=== PATIENT | female | born 1985 | race Caucasian/White ===

== ENCOUNTER 2018-04-11 11:02 | Emergency (ER) | payer OTHER ==
[2018-04-11] MEDS ORDERED: NA CHLORIDE 0.9% 1,000 ML ONE (11:27)
[2018-04-11 12:02] LABS: Protime INR 1.03
[2018-04-11 12:07] LABS: Absolute Lymphocytes (CBC) 1.7 K/uL (0.7-4.9); Absolute Monocytes 0.6 K/uL (0.1-1.3); Absolute Neutrophil 6.3 K/uL (1.8-8.0); Basophils % 1.1 % (0-1.3); Eosinophils % 3.8 % (0-4.4); Hematocrit 46.7 % (36.0-45.0); Lymphocytes % 18.3 % (15.3-44.8); MCH 31.6 pg (27.0-35.0); MPV 10.4 fL (7.6-11.3); Monocytes % 7.2 % (3.3-12.3); RBC Red Blood Cell Count 5.07 M/uL (3.86-4.86)
[2018-04-11 12:09] LABS: ALT/SGPT 29 U/L (12-78); AST/SGOT 24 U/L (15-37); Albumin 4.4 g/dL (3.4-5.0); Alkaline Phosphatase 89 U/L (45-117); BUN Blood Urea Nitrogen 13 mg/dL (7-18); Bicarbonate 29 mmol/L (21-32); Bilirubin Direct 0.1 mg/dL (0-0.2); Bilirubin Total 0.5 mg/dL (0.2-1.0); Glucose Level 99 mg/dL (74-106); Magnesium 2.3 mg/dL (1.8-2.4); NT PRO-BNP 60 pg/mL (<125); Potassium 3.2 mmol/L (3.5-5.1); Protein, Total 8.2 g/dL (6.4-8.2); Sodium Level 144 mmol/L (136-145); Troponin (Emerg Dept Use Only) < 0.02 ng/mL (0.0-0.045)
[2018-04-11] MEDS ORDERED: METOPROLOL XL 50 MG TAB PO ONE (12:12)
[2018-04-11 12:16] LABS: Barbiturates NEGATIVE (NEGATIVE); Benzodiazepines NEGATIVE (NEGATIVE); Cocaine NEGATIVE (NEGATIVE); METHAMPHETAM NEGATIVE (NEGATIVE); Methadone NEGATIVE (NEGATIVE); Opiates NEGATIVE (NEGATIVE); Phencyclidine NEGATIVE (NEGATIVE); THC Cannibis POSITIVE (NEGATIVE)
--- NOTE | 2018-04-11 12:16 | RAD REPORT ---
EXAM DESCRIPTION: RAD - Chest Single View - 04/11/2018 12:04 pm CLINICAL HISTORY: Chest pain COMPARISON: March 2017 TECHNIQUE: AP portable chest image was obtained 1139 hours . FINDINGS: Lungs are clear. Heart and vasculature are normal. No measurable pleural effusion and no p neumothorax. No acute bony abnormality seen. No acute aortic findings suspected. IMPRESSION: No acute cardiopulmonary process. No suspicious change from comparison.
--- NOTE | 2018-04-11 12:39 | ER ---
Nurse's Notes [facility] Name: Amber Giles Age: 32 yrs Sex: Female : 1985 Arrival Date: 04/11/2018 Time: 11:03 Bed 8 Private MD: Diagnosis: Palpitations;Hypokalemia Presentation: 04/11 11:06 Presenting complaint: Patient states: I have been having chest pain and a crazy feeling la1 in my chest and it feels like it goes to my back. Transition of care: patient was not received from another setting of care. Onset of symptoms was April 11, 2018. Risk Assessment: Do you want to hurt yourself or someone else? Patient reports no desire to harm self or others. Initial Sepsis Screen: Does the patient meet any 2 criteria? No. Patient's initial sepsis screen is negative. Does the patient have a suspected source of infection? No. Patient's initial sepsis screen is negative. Care prior to arrival: None. 11:06 Method Of Arrival: Ambulatory la1 11:06 Acuity: JOSUÉ 3 la1 DIRECTOR CLINICAL PHARMACOLOGY: 13:00 LMP 04/10/2018 jl7 Historical: - Allergies: 11:07 Macrobid; la1 - PMHx: 11:07 allergies; LEAKING HEART VALVE WITH REGUR.; la1 - Immunization history:: Adult Immunizations up to date. - Social history:: Smoking status: Patient/guardian denies using tobacco. - Ebola Screening: : No symptoms or risks identified at this time. - Family history:: not pertinent. Screenin:42 Abuse screen: Denies threats or abuse. Denies injuries from another. Nutritional jl7 screening: No deficits noted. Tuberculosis screening: No symptoms or risk factors identified. Fall Risk IV access (20 points). Total Musa Fall Scale indicates No Risk (0-24 pts). Assessment: 11:20 General: Appears uncomfortable, ill, Behavior is cooperative, appropriate for age. jl7 Pain: Complains of pain in chest Pain does not radiate. Pain currently is 7 out of 10 on a pain scale. Quality of pain is described as pressure, Pain began Is continuous. Neuro: Level of Consciousness is awake, alert, obeys commands, Oriented to person, place, time, situation. Cardiovascular: Heart tones S1 S2 present Patient's skin is warm and dry. Respiratory: Airway is patent Respiratory effort is even, unlabored, Respiratory pattern is regular, symmetrical, Breath sounds are clear bilaterally. GI: No signs and/or symptoms were reported involving the gastrointestinal system. : No signs and/or symptoms were reported regarding the genitourinary system. EENT: No signs and/or symptoms were reported regarding the EENT system. Derm: Skin is dry, Skin is pale, Skin temperature is warm. Musculoskeletal: No signs and/or symptoms reported regarding the musculoskeletal system. Vital Signs: 11:07 BP 126 / 67; Pulse 110; Resp 16; Temp 97.6; Pulse Ox 98% on R/A; Weight 49.9 kg; Height la1 5 ft. 1 in. (154.94 cm); 11:42 BP 108 / 76; Pulse 73; Resp 23 S; Pulse Ox 99% on R/A; Pain 7/10; jl7 12:00 BP 118 / 73; Pulse 66; Resp 16 S; Pulse Ox 100% on R/A; jl7 13:01 BP 109 / 64; Pulse 74; Resp 16 S; Pulse Ox 100% on R/A; jl7 11:07 Body Mass Index 20.79 (49.90 kg, 154.94 cm) la1 ED Course: 11:03 Patient arrived in ED. tw3 11:07 Triage completed. la1 11:08 Arm band placed on left wrist. la1 11:12 Alexis Winchester MD is Attending Physician. katharine 11:15 Sukhjinder Bright, RN is Primary Nurse. jl7 11:20 EKG done, by ED staff, reviewed by Alexis Winchester MD. jb1 11:30 Initial lab(s) drawn, by mi, sent to lab. Urine collected: clean catch specimen, jb1 cloudy, neal colored. Inserted saline lock: 20 gauge in right antecubital area, using aseptic technique. Blood collected. 11:42 Patient has correct armband on for positive identification. Placed in gown. Bed in low jl7 position. Call light in reach. Side rails up X 1. elevator builder on. Pulse ox on. NIBP on. Warm blanket given. 11:42 Patient maintains SpO2 saturation greater than 95% on room air. jl7 12:04 XRAY Chest (1 view) In Process Unspecified. EDMS 13:07 No provider procedures requiring assistance completed. IV discontinued, intact, jl7 bleeding controlled, No redness/swelling at site. Pressure dressing applied. Administered Medications: 11:38 Drug: NS 0.9% 1000 ml Route: IV; Rate: 1 bolus; Site: right antecubital; jl7 12:30 Follow up: Response: No adverse reaction; IV Status: Completed infusion jl7 12:06 Drug: ToPROL XL 12.5 mg Route: PO; jl7 13:02 Follow up: Response: No adverse reaction jl7 12:57 Drug: Potassium Effervescent Tablet 25 mEq Route: PO; jl7 13:01 Follow up: Response: Medication administered at discharge. jl7 Outcome: 12:39 Discharge ordered by . katharine 13:07 Discharged to home ambulatory. jl7 13:07 Condition: stable 13:07 Discharge instructions given to patient, family, Instructed on discharge instructions, follow up and referral plans. medication usage, Demonstrated understanding of instructions, follow-up care, medications, Prescriptions given X 1. 13:08 Patient left the ED. jl7 Signatures: Dispatcher [employer] EDMS Kaiden Stokes jb1 Alexis Winchester MD MD cha Attema, Lee, RN RN la1 Sukhjinder Bright RN RN jl7 Colette Saleh tw3 Corrections: (The following items were deleted from the chart) 11:42 11:20 BP 108 / 76; Pulse 73bpm; Resp 23bpm; Spontaneous; Pulse Ox 99% RA; Pain 01/06; [id number]
--- NOTE | 2018-04-11 12:39 | EDPHYS ---
Physician Documentation [facility] Name: Amber Giles Age: 32 yrs Sex: Female : 1985 Arrival Date: 04/11/2018 Time: 11:03 Bed 8 Private MD: ED Physician Alexis Winchester HPI: 04/11 11:57 This 32 yrs old Female presents to ER via Ambulatory with complaints of Chest katharine Pain, Breathing Difficulty. 11:57 The patient or guardian reports chest pain that is located primarily in the substernal katharine area. The pain does not radiate. Associated signs and symptoms: The patient has no apparent associated signs or symptoms. The chest pain is described as a pressure. Modifying factors: The symptoms are alleviated by nothing. the symptoms are aggravated by nothing. Severity of pain: At its worst the pain was mild in the emergency department the pain is unchanged. The patient has experienced similar episodes in the past, multiple times. PUBLIC RELATIONS: 13:00 LMP 04/10/2018 jl7 Historical: - Allergies: 11:07 Macrobid; la1 - PMHx: 11:07 allergies; LEAKING HEART VALVE WITH REGUR.; la1 - Immunization history:: Adult Immunizations up to date. - Social history:: Smoking status: Patient/guardian denies using tobacco. - Ebola Screening: : No symptoms or risks identified at this time. - Family history:: not pertinent. ROS: 11:57 Constitutional: Negative for fever, chills, and weight loss, Eyes: Negative for injury, katharine pain, redness, and discharge, ENT: Negative for injury, pain, and discharge, Neck: Negative for injury, pain, and swelling, Respiratory: Negative for shortness of breath, cough, wheezing, and pleuritic chest pain, Abdomen/GI: Negative for abdominal pain, nausea, vomiting, diarrhea, and constipation, Back: Negative for injury and pain, : Negative for injury, bleeding, discharge, and swelling, MS/Extremity: Negative for injury and deformity, Skin: Negative for injury, rash, and discoloration, Neuro: Negative for headache, weakness, numbness, tingling, and seizure, Psych: Negative for depression, anxiety, suicide ideation, homicidal ideation, and hallucinations, Allergy/Immunology: Negative for hives, rash, and allergies, Endocrine: Negative for neck swelling, polydipsia, polyuria, polyphagia, and marked weight changes, Hematologic/Lymphatic: Negative for swollen nodes, abnormal bleeding, and unusual bruising. 11:57 Cardiovascular: Positive for palpitations. Exam: 11:57 Constitutional: This is a well developed, well nourished patient who is awake, alert, katharine and in no acute distress. Head/Face: Normocephalic, atraumatic. Eyes: Pupils equal round and reactive to light, extra-ocular motions intact. Lids and lashes normal. Conjunctiva and sclera are non-icteric and not injected. Cornea within normal limits. Periorbital areas with no swelling, redness, or edema. ENT: Nares patent. No nasal discharge, no septal abnormalities noted. Tympanic membranes are normal and external auditory canals are clear. Oropharynx with no redness, swelling, or masses, exudates, or evidence of obstruction, uvula midline. Mucous membranes moist. Neck: Trachea midline, no thyromegaly or masses palpated, and no cervical lymphadenopathy. Supple, full range of motion without nuchal rigidity, or vertebral point tenderness. No Meningismus. Chest/axilla: Normal chest wall appearance and motion. Nontender with no deformity. No lesions are appreciated. Cardiovascular: Regular rate and rhythm with a normal S1 and S2. No gallops, murmurs, or rubs. Normal PMI, no JVD. No pulse deficits. Respiratory: Lungs have equal breath sounds bilaterally, clear to auscultation and percussion. No rales, rhonchi or wheezes noted. No increased work of breathing, no retractions or nasal flaring. Abdomen/GI: Soft, non-tender, with normal bowel sounds. No distension or tympany. No guarding or rebound. No evidence of tenderness throughout. Back: No spinal tenderness. No costovertebral tenderness. Full range of motion. Skin: Warm, dry with normal turgor. Normal color with no rashes, no lesions, and no evidence of cellulitis. MS/ Extremity: Pulses equal, no cyanosis. Neurovascular intact. Full, normal range of motion. Neuro: Awake and alert, GCS 15, oriented to person, place, time, and situation. Cranial nerves II-XII grossly intact. Motor strength 5/5 in all extremities. Sensory grossly intact. Cerebellar exam normal. Normal gait. Psych: Awake, alert, with orientation to person, place and time. Behavior, mood, and affect are within normal limits. 11:59 Musculoskeletal/extremity: DVT Exam: No signs of deep vein thrombosis. no pain, no katharine swelling, no tenderness, negative Homans' sign noted on exam, no appreciated bluish discoloration, no erythema, no increased warmth. Vital Signs: 11:07 BP 126 / 67; Pulse 110; Resp 16; Temp 97.6; Pulse Ox 98% on R/A; Weight 49.9 kg; Height la1 5 ft. 1 in. (154.94 cm); 11:42 BP 108 / 76; Pulse 73; Resp 23 S; Pulse Ox 99% on R/A; Pain 7/10; jl7 12:00 BP 118 / 73; Pulse 66; Resp 16 S; Pulse Ox 100% on R/A; jl7 13:01 BP 109 / 64; Pulse 74; Resp 16 S; Pulse Ox 100% on R/A; jl7 11:07 Body Mass Index 20.79 (49.90 kg, 154.94 cm) la1 MDM: 11:[address] [facility] 11:59 Data reviewed: vital signs, nurses notes, lab test result(s), EKG, radiologic studies, [facility] CT scan, plain films. 04/11 11:15 Order name: Basic Metabolic Panel; Complete Time: 12:36 [facility] 04/11 11:15 Order name: CBC with Diff; Complete Time: 12:36 [facility] 04/11 11:15 Order name: LFT's; Complete Time: 12:36 [facility] 04/11 11:15 Order name: Magnesium; Complete Time: 12:36 [facility] 04/11 11:15 Order name: NT PRO-BNP; Complete Time: 12:36 [facility] 04/11 11:15 Order name: PT-INR; Complete Time: 12:36 [facility] 04/11 11:15 Order name: Troponin (emerg Dept Use Only); Complete Time: 12:36 [facility] 04/11 11:15 Order name: XRAY Chest (1 view); Complete Time: 12:36 [facility] 04/11 11:15 Order name: UDS; Complete Time: 12:36 [facility] 04/11 11:15 Order name: D-Dimer; Complete Time: 12:36 [facility] 04/11 11:40 Order name: Urine Dipstick--Ancillary (enter results) 04/11 11:40 Order name: Urine --Ancillary (enter results) 04/11 11:57 Order name: TSH [facility] 04/11 11:15 Order name: EKG; Complete Time: 11:15 [facility] 04/11 11:15 Order name: Cardiac monitoring; Complete Time: 11:21 [facility] 04/11 11:15 Order name: EKG - Nurse/Tech; Complete Time: 11:21 [facility] 04/11 11:15 Order name: IV Saline Lock; Complete Time: 11: [facility] 04/11 11:15 Order name: Labs collected and sent; Complete Time: 11: [facility] 04/11 11:15 Order name: O2 Per Protocol; Complete Time: 11: [facility] 04/11 11:15 Order name: O2 Sat Monitoring; Complete Time: 11: [facility] 04/11 11:15 Order name: Urine Dipstick-Ancillary (obtain specimen); Complete Time: 11:30 [facility] 04/11 11:15 Order name: Urine Test (obtain specimen); Complete Time: 11:30 [facility] 04/11 12:37 Order name: PO challenge: juice; Complete Time: 12:57 [facility] Administered Medications: 11:38 Drug: NS 0.9% 1000 ml Route: IV; Rate: 1 bolus; Site: right antecubital; jl7 12:30 Follow up: Response: No adverse reaction; IV Status: Completed infusion jl7 12:06 Drug: ToPROL XL 12.5 mg Route: PO; jl7 13:02 Follow up: Response: No adverse reaction jl7 12:57 Drug: Potassium Effervescent Tablet 25 mEq Route: PO; jl7 13:01 Follow up: Response: Medication administered at discharge. [facility] Disposition: 04/11/18 12:39 Discharged to Home. Impression: Palpitations, Hypokalemia. - Condition is Stable. - Discharge Instructions: Potassium Content of Foods, Palpitations, Aspirin and Your Heart, Palpitations, [id number], Hypokalemia. - Prescriptions for Toprol XL 25 mg Oral Tablet Sustained Release 24 hr - take 0.5 tablet by ORAL route once daily; 20 tablet. - Medication Reconciliation Form, Thank You Letter, Antibiotic Education, Prescription Opioid Use form. - Follow up: Private Physician; When: 2 - 3 days; Reason: Recheck today's complaints, Continuance of care, Re-evaluation by your physician. - Problem is new. - Symptoms have improved. Signatures: Dispatcher [employer] Alexis Lopez MD MD cha Attema, Lee RN RN la1 Sukhjinder Bright RN RN jl7 Corrections: (The following items were deleted from the chart) 13:08 12:39 04/11/2018 12:39 Discharged to Home. Impression: Palpitations; Hypokalemia. jl7 Condition is Stable. Discharge Instructions: Palpitations, Aspirin and Your Heart, Palpitations, [id number]. Prescriptions for Toprol XL 25 mg Oral Tablet Sustained Release 24 hr - take 0.5 tablet by ORAL route once daily; 20 tablet. and Forms are Medication Reconciliation Form, Thank You Letter, Antibiotic Education, Prescription Opioid Use. Follow up: Private Physician; When: 2 - 3 days; Reason: Recheck today's complaints, Continuance of care, Re-evaluation by your physician. Problem is new. Symptoms have improved. katharine
[2018-04-11] MEDS ORDERED: POTASSIUM 25 MEQ EFFERV TAB ONE (12:53)
[2018-04-11 13:12] VITALS: TEMP 97.6
[2018-04-11 13:15] VITALS: O2SAT 100
[2018-04-11 13:16] VITALS: BP 109/64
[2018-04-11 19:21] LABS: Urine Blood 3+ (NEG); Urine Glucose NEGATIVE (NEG); Urine Protein NEGATIVE (NEG); Urine pH 6.5 (5.0-7.0)
--- NOTE | 2018-04-13 10:14 | EKG ---
Test Date: 2018-04-11 Test Time: 11:16:29 Mail Carrier Technician: ASIA MEASUREMENT RESULTS: Intervals: Rate: 77 OH: 120 QRSD: 82 QT: 380 QTc: 430 [place]: P: 67 OH: 120 QRS: 83 T: 61 INTERPRETIVE STATEMENTS: Normal sinus rhythm Normal ECG No previous ECG available for comparison Electronically Signed On 04-13-18 10:13:42 CDT by Isaak Barnhart
== END 2018-04-11 13:08 | disposition home or self-care (01) ==
LOC: ER 11:02
DX: N81.10 Cystocele, unspecified (principal); I10 Essential (primary) hypertension; Z88.1 Allergy status to other antibiotic agents; Z88.8 Allergy status to other drugs, medicaments and biological substances
CPT/HCPCS: 36415; 71045; 80048; 80076; 80307; 81003; 81025; 83735; 83880; 84443; 84484; 85025; 85379; 85610; 93005; 96360; 99285; J7030

== ENCOUNTER 2018-07-19 16:21 | Emergency (ER) | payer OTHER ==
[2018-07-19] MEDS ORDERED: DEXAMETHASONE 10 MG/ML VIAL ONE (17:19)
[2018-07-19] MEDS ORDERED: METOCLOPRAMIDE 10 MG/2mL INJ ONE (17:20)
[2018-07-19] MEDS ORDERED: KETOROLAC 30 MG/ML INJ ONE (17:20)
[2018-07-19] MEDS ORDERED: ONDANSETRON 4 MG/2 ML VIAL ONE (17:20)
[2018-07-19] MEDS ORDERED: NA CHLORIDE 0.9% 1,000 ML ONE (17:20)
[2018-07-19] MEDS ORDERED: DIPHENHYDRAMINE 50 MG/ML VIAL ONE (17:20)
[2018-07-19 18:43] LABS: Urine Blood TRACE (NEG); Urine Glucose NEGATIVE (NEG); Urine Protein TRACE (NEG); Urine Specific Gravity >1.030 (1.005-1.030); Urine pH 5.5 (5.0-7.0)
--- NOTE | 2018-07-19 18:56 | ER ---
Nurse's Notes [facility] Name: Amber Giles Age: 32 yrs Sex: Female : 1985 Arrival Date: 07/19/2018 Time: 16:24 Bed 23 Private MD: Janes Bright Diagnosis: Headache Presentation: 07/19 16:33 Presenting complaint: Patient states: Headache with nausea and vomiting with facial aj pain that started today. Transition of care: patient was not received from another setting of care. Onset of symptoms was July 19, 2018. Risk Assessment: Do you want to hurt yourself or someone else? Patient reports no desire to harm self or others. Initial Sepsis Screen: Does the patient meet any 2 criteria? No. Patient's initial sepsis screen is negative. Does the patient have a suspected source of infection? No. Patient's initial sepsis screen is negative. Care prior to arrival: None. 16:33 Method Of Arrival: Ambulatory aj 16:33 Acuity: JOSUÉ 3 aj Triage Assessment: 16:35 General: Appears in no apparent distress. uncomfortable, Behavior is calm, cooperative, aj appropriate for age. Pain: Complains of pain in face. Neuro: Level of Consciousness is awake, alert, obeys commands, Oriented to person, place, time, situation, Appropriate for age Reports headache. Respiratory: Airway is patent Respiratory effort is even, unlabored, Respiratory pattern is regular, symmetrical. GI: Reports nausea, vomiting. Derm: Skin is intact, is healthy with good turgor, Skin is pink, warm \T\ dry. normal. CONTAINER WASHER: 16:35 LMP 06/28/2018 aj Historical: - Allergies: 16:35 Macrobid; aj - Home Meds: 16:35 Metoprolol Tartrate Oral [Active]; aj - PMHx: 16:35 Sinusitis; aj - PSHx: 16:35 None; aj - Immunization history:: Adult Immunizations up to date. - Social history:: Smoking status: Patient/guardian denies using tobacco. - Ebola Screening: : Patient negative for fever greater than or equal to 101.5 degrees Fahrenheit, and additional compatible Ebola Virus Disease symptoms Patient denies exposure to infectious person Patient denies travel to an Ebola-affected area in the 21 days before illness onset No symptoms or risks identified at this time. Screenin:54 Abuse screen: Denies threats or abuse. Nutritional screening: No deficits noted. tl3 Tuberculosis screening: No symptoms or risk factors identified. Fall Risk None identified. Assessment: 16:54 General: Appears distressed, uncomfortable, slender, well groomed, well developed, well tl3 nourished, Behavior is calm, cooperative, appropriate for age. Pain: Complains of pain in top of head and forehead Pain currently is 10 out of 10 on a pain scale. Neuro: Level of Consciousness is awake, alert, obeys commands. Cardiovascular: Patient's skin is warm and dry. Respiratory: Airway is patent Respiratory effort is even, unlabored, Respiratory pattern is regular, symmetrical. GI: Reports nausea. : No signs and/or symptoms were reported regarding the genitourinary system. EENT:. 16:54 Reassessment: pt reports headache, has been being treated for an ear infection with two tl3 rounds of abx, Amox followed by AUGmentin. 17:24 Reassessment: No changes from previously documented assessment. Patient and/or family tl3 updated on plan of care and expected duration. Pain level reassessed. Patient is alert, oriented x 3, equal unlabored respirations, skin warm/dry/pink. pt seems to be feeling better after meds, no further retching noted as of yet. 19:04 Reassessment: Patient appears in no apparent distress at this time. No changes from tl3 previously documented assessment. Patient and/or family updated on plan of care and expected duration. Pain level reassessed. Patient is alert, oriented x 3, equal unlabored respirations, skin warm/dry/pink. pt ready for discharge. Vital Signs: 16:35 BP 105 / 66; Pulse 95; Resp 20; Temp 98.5; Pulse Ox 97% on R/A; Weight 49.9 kg; Height aj 5 ft. 1 in. (154.94 cm); 18:12 BP 96 / 45; Pulse 72; Resp 16; Pulse Ox 100% on R/A; tl3 19:04 BP 99 / 46; Pulse 70; Resp 16; Pulse Ox 100% on R/A; tl3 16:35 Body Mass Index 20.78 (49.90 kg, 154.94 cm) ED Course: 16:24 Patient arrived in ED. mr 16:25 None, None is Private Physician. mr 16:25 Janes Bright MD is Private Physician. mr 16:35 Triage completed. aj 16:35 Arm band placed on left wrist. Patient placed in an exam room. aj 16:39 Alexis Berger PA is PHCP. cp 16:39 Keith Sung MD is Attending Physician. cp 16:54 Lavern Arevalo, DEISY is Primary Nurse. tl3 16:54 Patient has correct armband on for positive identification. Bed in low position. Call tl3 light in reach. Adult w/ patient. Door closed. Noise minimized. Lights dimmed. 16:54 No provider procedures requiring assistance completed. tl3 17:03 Inserted saline lock: 20 gauge in right forearm, using aseptic technique. mg2 17:25 Lavern Arevalo, DEISY is Primary Nurse. tl3 18:11 Urine --Ancillary (enter results) Sent. tl3 18:11 Urine Dipstick--Ancillary (enter results) Sent. tl3 19:04 IV discontinued, intact, bleeding controlled, No redness/swelling at site. Pressure tl3 dressing applied. Administered Medications: 17:21 Drug: Decadron - Dexamethasone 10 mg Route: IVP; Site: right forearm; tl3 18:09 Follow up: Response: No adverse reaction tl3 17:22 Drug: Benadryl 25 mg Route: IVP; Site: right forearm; tl3 18:10 Follow up: Response: No adverse reaction; Marked relief of symptoms tl3 17:22 Drug: TORadol 30 mg Route: IVP; Infused Over: 2 mins; Site: right forearm; tl3 18:10 Follow up: Response: No adverse reaction; Marked relief of symptoms tl3 17:23 Drug: NS 0.9% 1000 ml Route: IV; Rate: 1 bolus; Site: right forearm; Delivery: Primary tl3 tubing; 18:11 Follow up: IV Status: Completed infusion; IV Intake: 1000ml tl3 17:23 Drug: Reglan 10 mg Route: IVP; Infused Over: 2 mins; Site: right forearm; tl3 18:10 Follow up: Response: No adverse reaction; Marked relief of symptoms tl3 17:23 Drug: Zofran 4 mg Route: IVP; Infused Over: 2 mins; Site: right forearm; tl3 18:10 Follow up: Response: No adverse reaction; Marked relief of symptoms tl3 Intake: 18:11 IV: 1000ml; Total: 1000ml. tl3 Outcome: 18:55 Discharge ordered by . stacie 19:04 Discharged to home ambulatory. tl3 19:04 Condition: stable 19:04 Discharge instructions given to patient, family, Instructed on discharge instructions, follow up and referral plans. medication usage, Demonstrated understanding of instructions, follow-up care, medications, Prescriptions given X 3. 19:06 Patient left the ED. tl3 Signatures: Selene Aguirre RN Kathrin Blanco Corey, PA PA Lavern Otero RN RN tl3 Bharathi Arenas RN RN mg2 Corrections: (The following items were deleted from the chart) 17:04 17:03 Inserted saline lock: 20 gauge in right forearm, using aseptic technique. Blood mg2 collected. mg2
--- NOTE | 2018-07-19 18:56 | EDPHYS ---
Physician Documentation [facility] Name: Amber Giles Age: 32 yrs Sex: Female : 1985 Arrival Date: 07/19/2018 Time: 16:24 Bed 23 Private MD: Janes Bright ED Physician Keith Sung HPI: 07/19 17:00 This 32 yrs old Female presents to ER via Ambulatory with complaints of cp Vomiting. 17:00 The patient presents to the emergency department with nausea, vomiting, that is cp intermittent. Onset: The symptoms/episode began/occurred today. Associated signs and symptoms: Pertinent positives: headache, Pertinent negatives: diarrhea, fever, GI bleeding. 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 - Social history:: Smoking status: Patient/guardian denies using tobacco. - Ebola Screening: : Patient negative for fever greater than or equal to 101.5 degrees Fahrenheit, and additional compatible Ebola Virus Disease symptoms Patient denies exposure to infectious person Patient denies travel to an Ebola-affected area in the 21 days before illness onset No symptoms or risks identified at this time. ROS: 17:05 Constitutional: Negative for body aches, chills, fever, poor PO intake. cp 17:05 Eyes: Positive for photophobia, Negative for discharge, matting, redness. cp 17:05 ENT: Positive for sinus pain, Negative for drainage from ear(s), ear pain, difficulty swallowing, difficulty handling secretions. Exam: 17:12 Constitutional: The patient appears in no acute distress, alert, awake, non-toxic, well cp developed, well nourished, uncomfortable. 17:12 Head/Face: Normocephalic, atraumatic. cp 17:12 Eyes: Periorbital structures: appear normal, Pupils: equal, round, and reactive to light and accomodation, Extraocular movements: intact throughout, Conjunctiva: normal, no exudate, no injection, Sclera: no appreciated abnormality, Lids and lashes: appear normal, bilaterally. 17:12 ENT: External ear(s): are unremarkable, Ear canal(s): are normal, clear, TM's: bulging, is not appreciated, bilaterally, dullness, bilaterally, erythema, is not appreciated, bilaterally, Nose: is normal, Mouth: Lips: moist, Oral mucosa: pink and intact, moist, Posterior pharynx: is normal, airway is patent, no erythema, no exudate. 17:12 Neck: ROM/movement: is normal, is supple, without pain, no range of motions limitations, no meningismus, no nuchal rigidity, Lymph nodes: no appreciated lymphadenopathy. 17:12 Chest/axilla: Inspection: normal, Palpation: is normal, no crepitus, no tenderness. 17:12 Cardiovascular: Rate: normal, Rhythm: regular. 17:12 Respiratory: the patient does not display signs of respiratory distress, Respirations: normal, no use of accessory muscles, no retractions, no splinting, no tachypnea, labored breathing, is not present, Breath sounds: are clear throughout, no decreased breath sounds, no stridor, no wheezing. 17:12 Abdomen/GI: Inspection: abdomen appears normal, Bowel sounds: active, all quadrants, Palpation: abdomen is soft and non-tender, in all quadrants, rebound tenderness, is not appreciated, voluntary guarding, is not appreciated, involuntary guarding, is not appreciated. 17:12 Back: CVA tenderness, is absent. 17:12 Skin: cellulitis, is not appreciated, no rash present. 17:12 Neuro: Orientation: to person, place \T\ time. Mentation: is normal, Cerebellar function: is grossly normal, Motor: is normal, Sensation: is normal. Vital Signs: 16:35 BP 105 / 66; Pulse 95; Resp 20; Temp 98.5; Pulse Ox 97% on R/A; Weight 49.9 kg; Height aj 5 ft. 1 in. (154.94 cm); 18:12 BP 96 / 45; Pulse 72; Resp 16; Pulse Ox 100% on R/A; tl3 19:04 BP 99 / 46; Pulse 70; Resp 16; Pulse Ox 100% on R/A; tl3 16:35 Body Mass Index 20.78 (49.90 kg, 154.94 cm) aj MDM: 16:42 Patient medically screened. cp 17:00 Differential diagnosis: migraine, sinusitis, meningitis, tension headache. cp 18:55 Data reviewed: vital signs, nurses notes, lab test result(s), and as a result, I will cp discharge patient. 18:55 Counseling: I had a detailed discussion with the patient and/or guardian regarding: the cp historical points, exam findings, and any diagnostic results supporting the discharge/admit diagnosis, lab results, to return to the emergency department if symptoms worsen or persist or if there are any questions or concerns that arise at home. Response to treatment: the patient's symptoms have markedly improved after treatment, VSS. Headache markedly improved. Will discharge to home for continued monitoring. 07/19 18:08 Order name: Urine Dipstick--Ancillary (enter results) ms 07/19 18:08 Order name: Urine --Ancillary (enter results) ms 07/19 18:44 Order name: Urine --Ancillary EDAZ 07/19 18:44 Order name: Urine Dipstick-Ancillary [facility] 07/19 16:57 Order name: Urine Dipstick-Ancillary (obtain specimen); Complete Time: 18:08 cp 07/19 16:57 Order name: Urine Test (obtain specimen); Complete Time: 18:07 cp 07/19 16:57 Order name: IV; Complete Time: 17:03 cp Administered Medications: 17:21 Drug: Decadron - Dexamethasone 10 mg Route: IVP; Site: right forearm; tl3 18:09 Follow up: Response: No adverse reaction tl3 17:22 Drug: Benadryl 25 mg Route: IVP; Site: right forearm; tl3 18:10 Follow up: Response: No adverse reaction; Marked relief of symptoms tl3 17:22 Drug: TORadol 30 mg Route: IVP; Infused Over: 2 mins; Site: right forearm; tl3 18:10 Follow up: Response: No adverse reaction; Marked relief of symptoms tl3 17:23 Drug: NS 0.9% 1000 ml Route: IV; Rate: 1 bolus; Site: right forearm; Delivery: Primary tl3 tubing; 18:11 Follow up: IV Status: Completed infusion; IV Intake: 1000ml tl3 17:23 Drug: Reglan 10 mg Route: IVP; Infused Over: 2 mins; Site: right forearm; tl3 18:10 Follow up: Response: No adverse reaction; Marked relief of symptoms tl3 17:23 Drug: Zofran 4 mg Route: IVP; Infused Over: 2 mins; Site: right forearm; tl3 18:10 Follow up: Response: No adverse reaction; Marked relief of symptoms tl3 Disposition: 19:20 Chart complete. cp Disposition: 07/19/18 18:55 Discharged to Home. Impression: Headache. - Condition is Stable. - Discharge Instructions: General Headache Without Cause. - Prescriptions for Fiorinal 50- 325-40 mg Oral Capsule - take 1 capsule by ORAL route every 4 hours As needed - not to exceed 6 capsules per day; 20 capsule. Ibuprofen 800 mg Oral Tablet - take 1 tablet by ORAL route every 8 hours As needed take with food; 30 tablet. Zofran 4 mg Oral Tablet - take 1 tablet by ORAL route every 12 hours As needed; 20 tablet. - Medication Reconciliation Form, Thank You Letter, Antibiotic Education, Prescription Opioid Use form. - Follow up: Private Physician; When: 1 - 2 days; Reason: Recheck today's complaints. - Problem is new. - Symptoms have improved. Addendum: 07/21/2018 03:39 Co-signature as Attending Physician, Keith Sung MD I agree with the assessment and t w4 plan of care. 13:51 Addendum: Fioricet was changed to Fiorinal as previous was not covered per Medicaid. s nw Signatures: Dispatcher [employer] Selene Diaz RN RN aj Therrien, Shelly, STEAM POWERPLANT SUPERVISOR-C STEAM POWERPLANT SUPERVISOR-Csnw Alexis Berger PA PA cp Wadley, Terrence, MD MD tw4 Lavern Arevalo RN RN tl3 Corrections: (The following items were deleted from the chart) 07/19 19:06 18:55 07/19/2018 18:55 Discharged to Home. Impression: Headache. Condition is Stable. tl3 Forms are Medication Reconciliation Form, Thank You Letter, Antibiotic Education, Prescription Opioid Use. Follow up: Private Physician; When: 1 - 2 days; Reason: Recheck today's complaints. Problem is new. Symptoms have improved. cp
[2018-07-19 19:11] VITALS: TEMP 98.5
[2018-07-19 19:12] VITALS: O2SAT 100
[2018-07-19 19:13] VITALS: BP 99/46
== END 2018-07-19 19:06 | disposition home or self-care (01) ==
LOC: ER 16:21
DX: R51 Headache (principal); R11.2 Nausea with vomiting, unspecified; Z88.8 Allergy status to other drugs, medicaments and biological substances
CPT/HCPCS: 81003; 81025; J1100; J2405; J2765; J7030

== ENCOUNTER 2018-07-27 14:34 | Emergency (ER) | payer OTHER ==
[2018-07-27] MEDS ORDERED: KETOROLAC 30 MG/ML INJ ONE (15:30)
[2018-07-27 15:51] LABS: Absolute Lymphocytes (CBC) 1.5 K/uL (0.7-4.9); Absolute Monocytes 0.4 K/uL (0.1-1.3); Absolute Neutrophil 4.9 K/uL (1.8-8.0); Basophils % 0.7 % (0-1.3); Eosinophils % 0.4 % (0-4.4); Hematocrit 40.8 % (36.0-45.0); Lymphocytes % 21.6 % (15.3-44.8); MPV 9.7 fL (7.6-11.3); Monocytes % 5.9 % (3.3-12.3); Potassium 3.7 mmol/L (3.5-5.1); RBC Red Blood Cell Count 4.41 M/uL (3.86-4.86)
[2018-07-27 16:31] LABS: Urine Blood TRACE (NEG); Urine Glucose NEGATIVE (NEG); Urine Protein NEGATIVE (NEG); Urine Specific Gravity 1.015 (1.005-1.030)
--- NOTE | 2018-07-27 17:04 | RAD REPORT ---
EXAM DESCRIPTION: CTAbdomen Pelvis W Contrast - 07/27/2018 4:49 pm CLINICAL HISTORY: Abdominal pain. iv contrast only;Abd pain COMPARISON: Abdomen Pelvis W Contrast dated 03/31/2016; Abdomen Pelvis W Contrast dated 11/16/2015 ; CT ABD PELVIS W CONTRAST dated 06/26/2015; Transvaginal Study Probe dated 07/27/2018 TECHNIQUE: Biphasic CT imaging of the abdomen and pelvis was performed with 100 ml non-ionic IV cont rast. All CT scans are performed using dose optimization technique as appropriate and may include automated exposure control or mA/KV adjustment according to patient size. FINDINGS: The lung bases are clear. The liver contains small rounded low-density lesions, likely benign cysts, largest in the right lobe measuring 10 mm. No aggressive liver lesion or biliary dilatation. The spleen, pancreas, adrenal glan ds are normal. No hydronephrosis of either kidney. Small cortical cyst is present left kidney. . No bowel obstruction, free air, free fluid or abscess. There is a large amount stool in the colon. Th e appendix is not identified as a discrete structure, however, no secondary findings of appendicitis are identified. No evidence of significant lymphadenopathy. No suspicious bony findings. IMPRESSION: No acute intra-abdominal or pelvic finding.
--- NOTE | 2018-07-27 17:17 | ER ---
Nurse's Notes [facility] Name: Amber Giles Age: 33 yrs Sex: Female : 1985 Arrival Date: 07/27/2018 Time: 14:38 Bed 25 Private MD: Janes Bright Diagnosis: Constipation, unspecified;Abdominal and pelvic pain Presentation: 07/27 14:57 Presenting complaint: Patient states: has been on 3 rounds of antibiotics for ear iw infection, started having pain/burning to vaginal are and suprapubic area after starting 2nd antibiotics, thought it was a yeast infection at first, feels pressure into her vagina and painful intercourse, has not had BM in at least 4 days, not eating much, also had heavy period 5 days ago with clots, 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 Transition of care: patient was not received from another setting of care. Onset of symptoms was July 22, 2018. Risk Assessment: Do you want to hurt yourself or someone else? Patient reports no desire to harm self or others. Initial Sepsis Screen: Does the patient meet any 2 criteria? No. Patient's initial sepsis screen is negative. Does the patient have a suspected source of infection? No. Patient's initial sepsis screen is negative. Care prior to arrival: None. 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 - Social history:: Smoking status: Patient/guardian denies using tobacco. - Ebola Screening: : Patient negative for fever greater than or equal to 101.5 degrees Fahrenheit, and additional compatible Ebola Virus Disease symptoms Patient denies exposure to infectious person Patient denies travel to an Ebola-affected area in the 21 days before illness onset No symptoms or risks identified at this time. Screenin:14 Abuse screen: Denies threats or abuse. Denies injuries from another. Nutritional aj screening: No deficits noted. Tuberculosis screening: No symptoms or risk factors identified. Fall Risk None identified. Assessment: 15:14 General: Appears in no apparent distress. uncomfortable, Behavior is cooperative, aj appropriate for age, crying. Pain: Complains of pain in pelvis. Neuro: Level of Consciousness is awake, alert, obeys commands, Oriented to person, place, time, situation, Appropriate for age. Respiratory: Airway is patent Respiratory effort is even, unlabored, Respiratory pattern is regular, symmetrical. GI: Abdomen is flat, non-distended, Bowel sounds present X 4 quads. Abd is soft and non tender X 4 quads. : Reports pain in suprapubic area. Derm: Skin is intact, is healthy with good turgor, Skin is pink, warm \T\ dry. normal. 17:19 Reassessment: Patient appears in no apparent distress at this time. No changes from aj previously documented assessment. Patient and/or family updated on plan of care and expected duration. Pain level reassessed. 17:37 Reassessment: Patient appears in no apparent distress at this time. No changes from aj previously documented assessment. Patient and/or family updated on plan of care and expected duration. Pain level reassessed. Vital Signs: 15:15 BP 126 / 77; Pulse 99; Resp 16; Temp 98.7(O); Pulse Ox 100% on R/A; Pain 10/10; iw 16:22 BP 93 / 66; Pulse 85; Resp 17; Pulse Ox 97% on R/A; aj 17:19 BP 104 / 73; Pulse 84; Resp 16; Pulse Ox 99% on R/A; aj ED Course: 14:38 Patient arrived in ED. dl4 14:38 Janes Bright MD is Private Physician. dl4 14:48 [facility]-C [facility] kb 14:48 Alexis Winchester MD is Attending Physician. kb 14:51 Selene Aguirre, DEISY is Primary Nurse. aj 15:00 Triage completed. iw 15:02 Arm band placed on. iw 15:14 Patient has correct armband on for positive identification. aj 15:22 Urine collected: clean catch specimen, clear. iw 15:28 Basic Metabolic Panel Sent. aj 15:28 CBC with Diff Sent. aj 15:29 Inserted saline lock: 22 gauge in left forearm, using aseptic technique. Blood aj collected. 15:49 Transvaginal Study (probe) In Process Unspecified. EDMS 15:59 Ultrasound completed. Patient tolerated well. Patient moved back from ultrasound. aa4 16:[address] 2 16:[address] completed. Patient tolerated procedure well. Patient moved back from CT. nj 16:49 CT Abd/Pelvis - W/Contrast In Process Unspecified. EDMS 17:37 No provider procedures requiring assistance completed. IV discontinued, intact, aj bleeding controlled, No redness/swelling at site. Pressure dressing applied. Administered Medications: 15:27 Drug: TORadol 30 mg Route: IVP; Site: left forearm; aj 17:18 Follow up: Response: No adverse reaction aj 15:27 Drug: NS 0.9% 1000 ml Route: IV; Rate: 1000 ml; Site: left forearm; aj 17:18 Follow up: Response: No adverse reaction; IV Status: Completed infusion; IV Intake: aj 1000ml 17:18 Drug: Magnesium Citrate Liquid 300 ml Route: PO; aj 17:39 Follow up: Response: No adverse reaction aj 17:18 Drug: [place] 5 mg-325 mg 1 tabs Route: PO; aj 17:39 Follow up: Response: No adverse reaction aj Intake: 17:18 IV: 1000ml; Total: 1000ml. aj Outcome: 17:16 Discharge ordered by . kb 17:37 Discharged to home ambulatory. aj 17:37 Condition: good 17:37 Discharge instructions given to patient, family, Instructed on discharge instructions, follow up and referral plans. medication usage, Demonstrated understanding of instructions, follow-up care, medications, Prescriptions given X 2. 17:44 Patient left the ED. aj Signatures: Dispatcher [employer] EDMS Lisa Bello, DIONISIO-C LOCAL CITY DRIVER-Selene Edwards, RN RN Wendie Farnsworth, RN RN Selene Baker aa4 Jimmy Mckeon Victoria 2 Kyle Bryson4 Corrections: (The following items were deleted from the chart) 15:18 15:15 BP 126 / 77; Pulse 99bpm; Resp 16bpm; Pulse Ox 100% RA; Pain 10/10; iw iw
--- NOTE | 2018-07-27 17:17 | EDPHYS ---
Physician Documentation [facility] Name: Amber Giles Age: 33 yrs Sex: Female : 1985 Arrival Date: 07/27/2018 Time: 14:38 Bed 25 Private MD: Janes Birght ED Physician Alexis Winchester HPI: 07/27 15:53 This 33 yrs old Female presents to ER via Wheelchair with complaints of kb Abdominal Pain, Vaginal Pain. 15:53 The patient presents with abdominal pain right lower quadrant. Onset: The kb symptoms/episode began/occurred yesterday, and became worse today. The symptoms do not radiate. Associated signs and symptoms: Pertinent positives: nausea and vomiting, fever, Pertinent negatives: anorexia, blood in stools, chest pain, constipation, diarrhea, dysuria, headache, hematuria, palpitations, shortness of breath, vaginal discharge, vomiting blood. The symptoms are described as burning, constant. Modifying factors: The symptoms are alleviated by nothing, the symptoms are aggravated by nothing. Severity of pain: At its worst the pain was moderate in the emergency department the pain is unchanged. The patient has not experienced similar symptoms in the past. The patient has not recently seen a physician. 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 - Social history:: Smoking status: Patient/guardian denies using tobacco. - Ebola Screening: : Patient negative for fever greater than or equal to 101.5 degrees Fahrenheit, and additional compatible Ebola Virus Disease symptoms Patient denies exposure to infectious person Patient denies travel to an Ebola-affected area in the 21 days before illness onset No symptoms or risks identified at this time. ROS: 15:51 Constitutional: Negative for fever, chills, and weight loss, Cardiovascular: Negative kb for chest pain, palpitations, and edema, Respiratory: Negative for shortness of breath, cough, wheezing, and pleuritic chest pain, Back: Negative for injury and pain, MS/Extremity: Negative for injury and deformity, Skin: Negative for injury, rash, and discoloration, Neuro: Negative for headache, weakness, numbness, tingling, and seizure. 15:51 Abdomen/GI: Positive for abdominal pain, nausea and vomiting, Negative for diarrhea, constipation, abdominal cramps, abdominal distension, anorexia. 15:51 : Positive for vaginal pain. Exam: 15:51 Constitutional: This is a well developed, well nourished patient who is awake, alert, kb and in no acute distress. Head/Face: Normocephalic, atraumatic. Neck: Trachea midline, no thyromegaly or masses palpated, and no cervical lymphadenopathy. Supple, full range of motion without nuchal rigidity, or vertebral point tenderness. No Meningismus. Chest/axilla: Normal chest wall appearance and motion. Nontender with no deformity. No lesions are appreciated. Cardiovascular: Regular rate and rhythm with a normal S1 and S2. No gallops, murmurs, or rubs. Normal PMI, no JVD. No pulse deficits. Respiratory: Lungs have equal breath sounds bilaterally, clear to auscultation and percussion. No rales, rhonchi or wheezes noted. No increased work of breathing, no retractions or nasal flaring. Back: No spinal tenderness. No costovertebral tenderness. Full range of motion. Skin: Warm, dry with normal turgor. Normal color with no rashes, no lesions, and no evidence of cellulitis. MS/ Extremity: Pulses equal, no cyanosis. Neurovascular intact. Full, normal range of motion. Neuro: Awake and alert, GCS 15, oriented to person, place, time, and situation. Cranial nerves II-XII grossly intact. Motor strength 5/5 in all extremities. Sensory grossly intact. Cerebellar exam normal. Normal gait. 15:51 Abdomen/GI: Inspection: abdomen appears normal, Bowel sounds: normal, in all quadrants, Palpation: moderate abdominal tenderness, in the suprapubic area and right lower quadrant. Vital Signs: 15:15 BP 126 / 77; Pulse 99; Resp 16; Temp 98.7(O); Pulse Ox 100% on R/A; Pain 10/10; iw 16:22 BP 93 / 66; Pulse 85; Resp 17; Pulse Ox 97% on R/A; aj 17:19 BP 104 / 73; Pulse 84; Resp 16; Pulse Ox 99% on R/A; aj MDM: 14:48 Patient medically screened. kb 15:50 Data reviewed: vital signs, nurses notes. Data interpreted: Pulse oximetry: on room air kb is 100 %. Interpretation: normal. Counseling: I had a detailed discussion with the patient and/or guardian regarding: the historical points, exam findings, and any diagnostic results supporting the discharge/admit diagnosis, lab results, radiology results, the need for outpatient follow up, a family practitioner, an OB/Gyne specialist, to return to the emergency department if symptoms worsen or persist or if there are any questions or concerns that arise at home. 17:18 ED course: Pt has completed amoxicillin, clindamycin and is currently on bactrim for kb otitis media. Will continue antibiotics. Pt has follow up appt with Dr Ryan scheduled. 07/27 15:15 Order name: CBC with Diff; Complete Time: 15:57 kb 07/27 15:15 Order name: Basic Metabolic Panel; Complete Time: 15:55 kb 07/27 15:15 Order name: Transvaginal Study (probe) kb 07/27 15:47 Order name: Urine Dipstick--Ancillary (enter results); Complete Time: 16:34 bd 07/27 15:47 Order name: Urine --Ancillary (enter results); Complete Time: 16:34 bd 07/27 16:25 Order name: CT Abd/Pelvis - W/Contrast; Complete Time: 17:07 kb 07/27 15:15 Order name: IV Start; Complete Time: 15:27 kb 07/27 15:15 Order name: Urine Dipstick-Ancillary (obtain specimen); Complete Time: 15:22 kb Administered Medications: 15:27 Drug: TORadol 30 mg Route: IVP; Site: left forearm; aj 17:18 Follow up: Response: No adverse reaction aj 15:27 Drug: NS 0.9% 1000 ml Route: IV; Rate: 1000 ml; Site: left forearm; aj 17:18 Follow up: Response: No adverse reaction; IV Status: Completed infusion; IV Intake: aj 1000ml 17:18 Drug: Magnesium Citrate Liquid 300 ml Route: PO; aj 17:39 Follow up: Response: No adverse reaction aj 17:18 Drug: [place] 5 mg-325 mg 1 tabs Route: PO; aj 17:39 Follow up: Response: No adverse reaction aj Disposition: 07/28 07:05 Co-signature as Attending Physician, Alexis Winchester MD I agree with the assessment and katharine plan of care. Disposition: 07/27/18 17:16 Discharged to Home. Impression: Constipation, unspecified, Abdominal and pelvic pain. - Condition is Stable. - Discharge Instructions: Pelvic Pain, Female, [id number], Constipation, Adult, [id number], Abdominal Pain, Adult, [id number]. - Prescriptions for Zofran 4 mg Oral Tablet - take 1 tablet by ORAL route every 6 hours As needed; 20 tablet. Diclofenac Sodium 75 mg Oral Tablet, Delayed Release (E.C.) - take 1 tablet by ORAL route 2 times per day As needed; 30 tablet. - Medication Reconciliation Form, Thank You Letter, Antibiotic Education, Prescription Opioid Use form. - Follow up: Emergency Department; When: As needed; Reason: Worsening of condition. Follow up: Private Physician; When: 2 - 3 days; Reason: Recheck today's complaints, Continuance of care, Re-evaluation by your physician. Signatures: Dispatcher [employer] EDMS Lisa Bello, AUTOMOTIVE WORKER-C AUTOMOTIVE WORKER-Selene Edwards RN RN aj Anderson, Corey, MD MD cha Williams, Irene, RN RN iw Corrections: (The following items were deleted from the chart) 07/27 17:18 15:51 Abdomen/GI: Inspection: abdomen appears normal, Bowel sounds: normal, in all kb quadrants, Palpation: moderate abdominal tenderness, in the right lower quadrant, kb 17:44 17:16 07/27/2018 17:16 Discharged to Home. Impression: Constipation, unspecified; aj Abdominal and pelvic pain. Condition is Stable. Forms are Medication Reconciliation Form, Thank You Letter, Antibiotic Education, Prescription Opioid Use. Follow up: Emergency Department; When: As needed; Reason: Worsening of condition. Follow up: Private Physician; When: 2 - 3 days; Reason: Recheck today's complaints, Continuance of care, Re-evaluation by your physician. kb
[2018-07-27] MEDS ORDERED: MAGNESIUM CITRATE 300 ML BOT ONE (17:25)
[2018-07-27] MEDS ORDERED: HYDROCODONE/APAP 5/325 MG TAB ONE (17:25)
--- NOTE | 2018-07-27 17:59 | RAD REPORT ---
EXAM DESCRIPTION: US - Transvaginal Study Probe - 07/27/2018 3:48 pm CLINICAL HISTORY: Abdominal pain, pelvic pain Preliminary findings provided at the time of the study. COMPARISON: CT abdomen and pelvis July 27, 2018, Ultrasound August 2017 TECHNIQUE: Endovaginal sonography was performed. FINDINGS: Exam was limited. Patient was in extreme pain at the time of the study. Endometrial stripe is tri laminar in appearance measuring 6-7 mm. No focal endometrial abnormality. N o myometrial mass. Uterus is 8.2 x 4.2 x 5.6 cm. Ovaries were nonvisualized. This is primarily due to patient's inability to tolerate the examination at this time. No gross evidence for adnexal mass or abnormal fluid collection. On the earlier CT stud y to was no gross abnormality of the uterus, ovaries or adnexal. IMPRESSION: Negative ultrasound of the uterus. Nonvisualization of the ovaries with no gross adnexal abnormality. Patient was unable to tolerate the examination due to pain. CT imaging earlier showed no ovarian or a dnexal abnormality.
[2018-07-28 00:56] VITALS: TEMP 98.7
[2018-07-28 00:58] VITALS: BP 104/73; O2SAT 99
== END 2018-07-27 17:44 | disposition home or self-care (01) ==
LOC: ER 14:34
DX: K59.00 Constipation, unspecified (principal); Z88.1 Allergy status to other antibiotic agents
CPT/HCPCS: 36415; 74177; 76830; 80048; 81003; 81025; 85025; 96361; 96374; 99284

== ENCOUNTER 2019-02-16 13:37 | Emergency (ER) | payer OTHER, SELFPAY ==
[2019-02-16] MEDS ORDERED: NA CHLORIDE 0.9% 1,000 ML ONE ×2 (14:00→14:35)
--- NOTE | 2019-02-16 14:13 | RAD REPORT ---
EXAM DESCRIPTION: CT - Head Brain Wo Cont - 02/16/2019 2:02 pm CLINICAL HISTORY: CONFUSED Headache, altered consciousness COMPARISON: No comparisons TECHNIQUE: All CT scans are performed using dose optimization technique as appropriate and may inclu de automated exposure control or mA/KV adjustment according to patient size. FINDINGS: No intracranial hemorrhage, hydrocephalus or extra-axial fluid collection.No areas of brai n edema or evidence of midline shift. The paranasal sinuses and mastoids are clear. The calvarium is intact. IMPRESSION: No acute intracranial abnormality.
[2019-02-16 14:28] LABS: Absolute Lymphocytes (CBC) 1.6 K/uL (0.7-4.9); Basophils % 0.6 % (0-1.3); Hematocrit 44.3 % (36.0-45.0); Lymphocytes % 19.1 % (15.3-44.8); MPV 10.1 fL (7.6-11.3); RBC Red Blood Cell Count 4.86 M/uL (3.86-4.86)
[2019-02-16 14:32] LABS: Protime INR 1.06
[2019-02-16 14:45] LABS: Barbiturates NEGATIVE (NEGATIVE); Benzodiazepines NEGATIVE (NEGATIVE); Cocaine NEGATIVE (NEGATIVE); METHAMPHETAM NEGATIVE (NEGATIVE); Methadone NEGATIVE (NEGATIVE); Opiates NEGATIVE (NEGATIVE); Phencyclidine NEGATIVE (NEGATIVE); THC Cannibis NEGATIVE (NEGATIVE)
[2019-02-16 15:07] LABS: ALT/SGPT 26 U/L (12-78); AST/SGOT 24 U/L (15-37); Albumin 3.7 g/dL (3.4-5.0); Alkaline Phosphatase 69 U/L (45-117); BUN Blood Urea Nitrogen 13 mg/dL (7-18); Bicarbonate 27 mmol/L (21-32); Bilirubin Direct 0.2 mg/dL (0-0.2); Bilirubin Total 0.6 mg/dL (0.2-1.0); Glucose Level 81 mg/dL (74-106); Potassium 3.6 mmol/L (3.5-5.1); Protein, Total 6.6 g/dL (6.4-8.2); Sodium Level 143 mmol/L (136-145)
[2019-02-16 15:09] LABS: Urine Blood 1+ (NEG); Urine Glucose NEGATIVE (NEG); Urine Protein NEGATIVE (NEG); Urine Specific Gravity 1.015 (1.005-1.030)
--- NOTE | 2019-02-16 16:10 | EKG ---
Test Date: 2019-02-16 Test Time: 13:47:12 Content Development Specialist: TALAT MEASUREMENT RESULTS: Intervals: Rate: 92 AR: 126 QRSD: 84 QT: 370 QTc: 457 [place]: P: 73 AR: 126 QRS: 78 T: 64 INTERPRETIVE STATEMENTS: Normal sinus rhythm Normal ECG Compared to ECG 04/11/2018 11:16:29 No significant changes Electronically Signed On 02-16-19 16:09:17 CDT by Kevin Leblanc
--- NOTE | 2019-02-16 16:39 | ER ---
Nurse's Notes [facility] Name: Amber Giles Age: 33 yrs Sex: Female : 1985 Arrival Date: 02/16/2019 Time: 13:39 Bed 4 Private MD: Diagnosis: Dehydration;Altered mental status, unspecified Presentation: 02/16 13:42 Presenting complaint: pt presents to ER via wheelchair, with brother in law, states iw pt's children called him and told him pt was walking around like a zombie earlier today, he went to check on her and she seemed lethargic and not responding appropriately, pt appear drowsy, responds to painful stimuli, states her name, says she was recently put on abx for UTI, VSS, respirations even unlabored, pt was able to stand with assistance and get herself into bed. Transition of care: patient was not received from another setting of care. Onset of symptoms was February 16, 2019. Risk Assessment: Do you want to hurt yourself or someone else? Patient reports no desire to harm self or others. Initial Sepsis Screen: Does the patient meet any 2 criteria? No. Patient's initial sepsis screen is negative. Does the patient have a suspected source of infection? No. Patient's initial sepsis screen is negative. Care prior to arrival: None. 13:42 Method Of Arrival: Wheelchair 13:42 Acuity: JOSUÉ 2 iw Historical: - Allergies: 13:49 Macrobid; iw - PMHx: 13:49 Migraines; Sinusitis; iw - PSHx: 13:49 None; iw - Family history:: not pertinent. - Ebola Screening: : Patient negative for fever greater than or equal to 101.5 degrees Fahrenheit, and additional compatible Ebola Virus Disease symptoms Patient denies exposure to infectious person Patient denies travel to an Ebola-affected area in the 21 days before illness onset No symptoms or risks identified at this time. - Hospitalizations: : No recent hospitalization is reported. Screenin:40 Abuse screen: Denies threats or abuse. Nutritional screening: No deficits noted. aa5 Tuberculosis screening: No symptoms or risk factors identified. Fall Risk None identified. Assessment: 14:09 Reassessment: Pt back from CT . aa5 14:09 General: Appears comfortable, Behavior is calm, cooperative. Pain: Denies pain. Neuro: aa5 Level of Consciousness is awake, alert, obeys commands, Oriented to person, place, time, situation, Food Dehydrator Operator are equal bilaterally Moves all extremities. Speech is normal, Facial symmetry appears normal, Pupils are PERRLA. Cardiovascular: Heart tones S1 S2 present Rhythm is regular. Respiratory: Airway is patent Respiratory effort is even, unlabored, Respiratory pattern is regular, symmetrical, Breath sounds are clear bilaterally. GI: No signs and/or symptoms were reported involving the gastrointestinal system. : Reports burning with urination, urgency. EENT: No signs and/or symptoms were reported regarding the EENT system. Derm: Skin is pink, warm \T\ dry. Musculoskeletal: Range of motion: intact in all extremities. 14:39 Reassessment: Patient appears in no apparent distress at this time. pt appears to be iw sleeping, respirations even unlabored, pt following commands, pt straightened out arm when I asked her to, VSS, family at bedside. 15:30 Reassessment: Pt resting in bed with eyes closed, respirations even and unlabored, skin aa5 is pink/warm/dry. Pt's family at bedside. . Vital Signs: 13:52 BP 123 / 77; Pulse 78; Resp 16 S; Temp 98.2; Pulse Ox 100% on R/A; Pain 0/10; iw 14:23 BP 116 / 65; Pulse 87; Resp 18 S; Pulse Ox 100% on R/A; aa5 15:00 BP 99 / 64; Pulse 95; Resp 18 S; Pulse Ox 100% on R/A; aa5 16:00 BP 118 / 76; Pulse 93; Resp 16 S; Pulse Ox 100% on R/A; aa5 ED Course: 13:39 Patient arrived in ED. mr 13:43 Krishna Adan MD is Attending Physician. rn 13:47 Triage completed. iw 13:52 Arm band placed on. iw 13:58 Siena Mcintosh, DEISY is Primary Nurse. aa5 14:02 EKG done, by audiovisual aids technician. reviewed by Krishna Adan MD. sm3 14:04 CT Head Brain wo Cont In Process Unspecified. EDMS 14:09 Patient has correct armband on for positive identification. Placed in gown. Bed in low aa5 position. Call light in reach. Side rails up X2. Adult w/ patient. bus driver/monitor on. Pulse ox on. NIBP on. 14:10 Initial lab(s) drawn, by me, sent to lab. Inserted saline lock: 22 gauge in right aa5 antecubital area, using aseptic technique. Blood collected. 14:28 Straight cath inserted, using sterile technique, 16 Fr. Specimen obtained. Returned aa5 50cc returned . Patient tolerated well. 16:20 No provider procedures requiring assistance completed. IV discontinued, intact, iw bleeding controlled, No redness/swelling at site. Pressure dressing applied. Administered Medications: 14:39 Drug: NS 0.9% 1000 ml Route: IV; Rate: 1000 ml; Site: right antecubital; iw 16:10 Follow up: IV Status: Completed infusion iw 14:39 Drug: NS 0.9% 1000 ml Route: IV; Rate: 1000 ml; Site: right antecubital; iw 16:00 Follow up: IV Status: Completed infusion iw Point of Care Testing: Blood Glucose: 14:09 Blood Glucose: 80 mg/dL; aa5 Ranges: Outcome: 15:58 Discharge ordered by . rn 16:20 Discharged to home via wheelchair, with family. iw 16:20 Condition: good 16:20 Discharge instructions given to patient, family, Instructed on discharge instructions, follow up and referral plans. Demonstrated understanding of instructions, follow-up care. 16:23 Patient left the ED. iw Signatures: Dispatcher [employer] ELIUD MartinKathrin Irene, RN RN iw Krishna Adan MD MD rn Calderon, Audri, RN RN aa5 Maryse French 3 Corrections: (The following items were deleted from the chart) 16:52 14:39 Patient has correct armband on for positive identification. Placed in gown. Bed aa5 in low position. Call light in reach. Side rails up X2. Adult w/ patient. aa5 16:52 14:39 bus driver/monitor on. Pulse ox on. NIBP on. aa5 aa5 16:52 14:39 Patient has correct armband on for positive identification. Placed in gown. Bed aa5 in low position. Call light in reach. Side rails up X2. Adult w/ patient. aa5
--- NOTE | 2019-02-16 16:40 | EDPHYS ---
Physician Documentation [facility] Name: Amber Giles Age: 33 yrs Sex: Female : 1985 Arrival Date: 02/16/2019 Time: 13:39 Bed 4 Private MD: ED Physician Krishna Adan HPI: 02/16 13:45 This 33 yrs old Female presents to ER via Unassigned with complaints of rn Altered Mental Status. 13:45 The patient presents with decreased responsiveness. Onset: The symptoms/episode rn began/occurred today. Possible causes: unknown. Associated signs and symptoms: The patient has no apparent associated signs or symptoms, Pertinent negatives: abdominal pain, chest pain, combativeness, diaphoresis, diarrhea, headache, seizure, shortness of breath, vertigo, vomiting, weakness. Current symptoms: In the emergency department the patient's symptoms are unchanged from the initial presentation. The patient has not experienced similar symptoms in the past. [id number] brought patient in for AMS/decreased responsiveness, began some time today, taking flagyl for BV, denies pain, reports began feeling "off" since yesterday, was outside with kids all day, today with slow response and seems tired. Denies overdose or drug use. Denies chest pain/cough/abd pain/urinary symptoms. . Historical: - Allergies: 13:49 Macrobid; iw - PMHx: 13:49 Migraines; Sinusitis; iw - PSHx: 13:49 None; iw - Family history:: not pertinent. - Ebola Screening: : Patient negative for fever greater than or equal to 101.5 degrees Fahrenheit, and additional compatible Ebola Virus Disease symptoms Patient denies exposure to infectious person Patient denies travel to an Ebola-affected area in the 21 days before illness onset No symptoms or risks identified at this time. - Hospitalizations: : No recent hospitalization is reported. ROS: 13:45 Constitutional: Negative for fever, chills, and weight loss, Eyes: Negative for injury, rn pain, redness, and discharge, Neck: Negative for injury, pain, and swelling, Cardiovascular: Negative for chest pain, palpitations, and edema, Respiratory: Negative for shortness of breath, cough, wheezing, and pleuritic chest pain, Abdomen/GI: Negative for abdominal pain, nausea, vomiting, diarrhea, and constipation, Back: Negative for injury and pain, MS/Extremity: Negative for injury and deformity, Skin: Negative for injury, rash, and discoloration, Neuro: Negative for headache, numbness, tingling, and seizure. Exam: 13:45 Constitutional: Very thin girl somnolent, but arousable to voice Head/Face: rn Normocephalic, atraumatic. Eyes: Pupils equal round and reactive to light, extra-ocular motions intact. Lids and lashes normal. Conjunctiva and sclera are non-icteric and not injected. Cornea within normal limits. Periorbital areas with no swelling, redness, or edema. ENT: dry MM Neck: Trachea midline, no thyromegaly or masses palpated, and no cervical lymphadenopathy. Supple, full range of motion without nuchal rigidity, or vertebral point tenderness. No Meningismus. Cardiovascular: Regular rate and rhythm. No pulse deficits. Respiratory: Lungs have equal breath sounds bilaterally, clear to auscultation. No increased work of breathing, no retractions or nasal flaring. Abdomen/GI: soft, non-tender Skin: Warm, dry. Normal color with no rashes, no lesions, and no evidence of cellulitis. MS/ Extremity: Pulses equal, no cyanosis. Neurovascular intact. Full, normal range of motion. Equal circumference. Neuro: Somnolent, arousable to voice, moves all ext, slow to respond, speaks in whimpering voice. 14:23 ECG was reviewed by the Attending Physician. rn Vital Signs: 13:52 BP 123 / 77; Pulse 78; Resp 16 S; Temp 98.2; Pulse Ox 100% on R/A; Pain 0/10; iw 14:23 BP 116 / 65; Pulse 87; Resp 18 S; Pulse Ox 100% on R/A; aa5 15:00 BP 99 / 64; Pulse 95; Resp 18 S; Pulse Ox 100% on R/A; aa5 16:00 BP 118 / 76; Pulse 93; Resp 16 S; Pulse Ox 100% on R/A; aa5 MDM: 13:43 Patient medically screened. rn 15:52 Differential Diagnosis: electrolyte abnormality, hypoglycemia, intracranial bleed, rn overdose, seizure, UTI, volume depletion. Data reviewed: vital signs, nurses notes, lab test result(s), EKG, radiologic studies, CT scan, and as a result, I will discharge patient. Counseling: I had a detailed discussion with the patient and/or guardian regarding: the historical points, exam findings, and any diagnostic results supporting the discharge/admit diagnosis, lab results, radiology results, the need for outpatient follow up, to return to the emergency department if symptoms worsen or persist or if there are any questions or concerns that arise at home. Response to treatment: the patient's symptoms have markedly improved after treatment, and as a result, I will discharge patient. Special discussion: I discussed with the patient/guardian in detail that at this point there is no indication for admission to the hospital. It is understood, however, that if the symptoms persist or worsen the patient needs to return immediately for re-evaluation. 15:55 ED course: Pt markedly improved, now sitting up on own, much more alert, neg workup rn except for dehdyration. Neg ct head, neg UDS, neg UA. Will dc home as dehydration (2+ ketones in UA), possible mono, with return precautions.. 02/16 13:44 Order name: Acetaminophen; Complete Time: 15:46 rn 02/16 13:44 Order name: Basic Metabolic Panel; Complete Time: 15:46 rn 02/16 13:44 Order name: CBC with Diff; Complete Time: 14:44 rn 02/16 13:44 Order name: ETOH Level; Complete Time: 15:14 rn 02/16 13:44 Order name: Hepatic Function; Complete Time: 15:46 rn 02/16 13:44 Order name: PT-INR; Complete Time: 14:44 rn 02/16 13:44 Order name: Ptt, Activated; Complete Time: 14:44 rn 02/16 13:44 Order name: Salicylate; Complete Time: 15:46 rn 02/16 13:44 Order name: Urine Drug Screen; Complete Time: 15:14 rn 02/16 13:44 Order name: CT Head Brain wo Cont; Complete Time: 14:24 rn 02/16 14:29 Order name: Urine Dipstick--Ancillary (enter results); Complete Time: 15:14 bd 02/16 14:29 Order name: Urine --Ancillary (enter results); Complete Time: 15:14 bd 02/16 15:15 Order name: LAB Add On bd 02/16 15:23 Order name: Creatine Phosphokinase; Complete Time: 15:46 EDMS 08/20 13:44 Order name: Urine Test (obtain specimen); Complete Time: 15:15 rn 02/16 13:44 Order name: EKG; Complete Time: 13:45 rn 02/16 13:44 Order name: EKG - Nurse/Tech; Complete Time: 14:27 rn 02/16 13:44 Order name: IV Saline Lock; Complete Time: 14:27 rn 02/16 13:44 Order name: Labs collected and sent; Complete Time: 14:27 rn 02/16 13:44 Order name: Urine Dipstick-Ancillary (obtain specimen); Complete Time: 14:27 rn 02/16 13:44 Order name: Glucose Level; Complete Time: 14: rn 02/16 14:27 Order name: Straight Cath; Complete Time: 14:27 aa5 EC:23 Rate is 92 beats/min. Rhythm is regular. QRS [place] is Normal. AR interval is normal. QRS rn interval is normal. QT interval is normal. No Q waves. T waves are Normal. No ST changes noted. Clinical impression: Normal ECG. Interpreted by me. Reviewed by me. Administered Medications: 14:39 Drug: NS 0.9% 1000 ml Route: IV; Rate: 1000 ml; Site: right antecubital; iw 16:10 Follow up: IV Status: Completed infusion iw 14:39 Drug: NS 0.9% 1000 ml Route: IV; Rate: 1000 ml; Site: right antecubital; iw 16:00 Follow up: IV Status: Completed infusion iw Point of Care Testing: Blood Glucose: 14:09 Blood Glucose: 80 mg/dL; aa5 Ranges: Critical Glucose Levels:Adult <50 mg/dl or >400 mg/dl <40 mg/dl or >180 mg/dl Disposition: 02/16/19 15:58 Discharged to Home. Impression: Dehydration, Altered mental status, unspecified. - Condition is Stable. - Discharge Instructions: Dehydration, Adult, Fatigue. - Medication Reconciliation Form, Thank You Letter, Antibiotic Education, Prescription Opioid Use form. - Follow up: Private Physician; When: As needed; Reason: Recheck today's complaints, Re-evaluation by your physician. - Problem is new. - Symptoms have improved. Signatures: Dispatcher [employer] Wendie Au RN RN iw Nieto, Roman, MD MD rn Calderon, Siena, RN RN aa5 Corrections: (The following items were deleted from the chart) 13:47 13:45 Constitutional: Negative for fever, chills, and weight loss, Eyes: Negative for rn injury, pain, redness, and discharge, Neck: Negative for injury, pain, and swelling, Cardiovascular: Negative for chest pain, palpitations, and edema, Respiratory: Negative for shortness of breath, cough, wheezing, and pleuritic chest pain, Abdomen/GI: Negative for abdominal pain, nausea, vomiting, diarrhea, and constipation, Back: Negative for injury and pain, MS/Extremity: Negative for injury and deformity, Skin: Negative for injury, rash, and discoloration, Neuro: Negative for headache, weakness, numbness, tingling, and seizure, rn 15:57 15:55 ED course: Pt markedly improved, now sitting up on own, much more alert, neg rn workup except for dehdyration. Neg ct head, neg UDS, neg UA. Will dc home as dehydration, possible mono, with return precautions.. rn 16:23 15:58 02/16/2019 15:58 Discharged to Home. Impression: Dehydration; Altered mental iw status, unspecified. Condition is Stable. Forms are Medication Reconciliation Form, Thank You Letter, Antibiotic Education, Prescription Opioid Use. Follow up: Private Physician; When: As needed; Reason: Recheck today's complaints, Re-evaluation by your physician. Problem is new. Symptoms have improved. rn
[2019-02-16 17:00] VITALS: BP 123/77; TEMP 98.2; O2SAT 100
== END 2019-02-16 16:23 | disposition home or self-care (01) ==
LOC: ER 13:37
DX: E86.0 Dehydration (principal); Z88.3 Allergy status to other anti-infective agents
CPT/HCPCS: 36415; 51702; 70450; 80048; 80076; 80307; 80320; 80329; 81003; 81025; 82550; 82962; 85025; 85610; 85730; 93005; 96360; 96361; 99285; J7030

== ENCOUNTER 2019-02-16 21:23 | Emergency (ER) | payer SELFPAY ==
[2019-02-16] MEDS ORDERED: ONDANSETRON 4 MG/2 ML VIAL ONE (22:15)
[2019-02-16] MEDS ORDERED: NA CHLORIDE 0.9% 1,000 ML ONE (22:15)
[2019-02-16 22:45] LABS: BUN Blood Urea Nitrogen 12 mg/dL (7-18); Bicarbonate 24 mmol/L (21-32); Glucose Level 78 mg/dL (74-106); Potassium 3.8 mmol/L (3.5-5.1); Sodium Level 143 mmol/L (136-145)
--- NOTE | 2019-02-16 23:52 | ER ---
Nurse's Notes [facility] Name: Amber Giles Age: 33 yrs Sex: Female : 1985 Arrival Date: 02/16/2019 Time: 21:25 Bed 7 Private MD: Diagnosis: Vomiting;Dehydration Presentation: 02/16 21:50 Presenting complaint: Patient states: seen in ER and discharged at 1600 today. pt ak1 continues to vomit. pt currently on flagyl since last week for vaginitis. Transition of care: patient was not received from another setting of care. Onset of symptoms was February 16, 2019. Risk Assessment: Do you want to hurt yourself or someone else? Patient reports no desire to harm self or others. Initial Sepsis Screen: Does the patient meet any 2 criteria? No. Patient's initial sepsis screen is negative. Does the patient have a suspected source of infection? No. Patient's initial sepsis screen is negative. Care prior to arrival: None. 21:50 Method Of Arrival: Ambulatory ak1 21:50 Acuity: JOSUÉ 3 ak1 Triage Assessment: 21:51 General: Appears in no apparent distress. uncomfortable, Behavior is calm, cooperative. ak1 Pain: Denies pain. GI: Reports nausea, vomiting. 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 - Social history:: Smoking status: Patient/guardian denies using tobacco. - Ebola Screening: : No symptoms or risks identified at this time. Screenin:52 Abuse screen: Denies threats or abuse. Denies injuries from another. Nutritional ak1 screening: No deficits noted. Tuberculosis screening: No symptoms or risk factors identified. Fall Risk None identified. Assessment: 22:05 General: Appears uncomfortable, slender, Behavior is calm, cooperative, Reports unable bb to hold anything down. Neuro: Level of Consciousness is awake, alert, obeys commands, Oriented to person, place, time, situation. Cardiovascular: No deficits noted. Respiratory: Respiratory effort is even, unlabored, Respiratory pattern is regular. GI: Abdomen is flat, Bowel sounds present X 4 quads. Abd is soft X 4 quads Reports intolerance of fluids, intolerance of food, vomiting. Derm: Skin is pink, warm \T\ dry. Musculoskeletal: Circulation, motion, and sensation intact. 23:33 Reassessment: pt given juice for PO challenge with no adverse effects. bb 02/17 00:32 Reassessment: Patient is alert, oriented x 3, equal unlabored respirations, skin bb warm/dry/pink. pt verbalized understanding of and agrees to plan of care discharge instructions given pt ambulated with steady gait to exit accompanied by family Patient states feeling better. Vital Signs: 02/16 21:49 BP 104 / 60; Pulse 80; Resp 16; Temp 97.9; Pulse Ox 100% on R/A; Weight 48.99 kg (R); ak1 Height 5 ft. 1 in. (154.94 cm) (R); Pain 0/10; 23:39 BP 103 / 57; Pulse 101; Resp 16 S; Pulse Ox 100% on R/A; bb 02/17 00:33 BP 105 / 64; Pulse 98; Resp 16 S; Temp 98(O); Pulse Ox 99% on R/A; bb 02/16 21:49 Body Mass Index 20.41 (48.99 kg, 154.94 cm) ak1 ED Course: 02/16 21:25 Patient arrived in ED. ds1 21:49 Arm band placed on Patient placed in waiting room, Patient notified of wait time. ak1 21:51 Triage completed. ak1 21:52 Patient has correct armband on for positive identification. ak1 21:58 José Luis Grayson NP is PHCP. pm1 21:58 Alexis Winchester MD is Attending Physician. pm1 22:28 Inserted saline lock: 20 gauge in left antecubital area, using aseptic technique. Blood ar5 collected. 22:57 Elena Ram RN is Primary Nurse. bb 02/17 00:33 No provider procedures requiring assistance completed. IV discontinued, intact, bb bleeding controlled, No redness/swelling at site. Pressure dressing applied. Administered Medications: 02/16 22:30 Drug: NS 0.9% 1000 ml Route: IV; Rate: 1000 ml; Site: left antecubital; bb 23:30 Follow up: IV Status: Completed infusion; IV Intake: 1000ml bb 22:30 Drug: Zofran 4 mg Route: IVP; Site: left antecubital; bb 02/17 00:18 Follow up: Response: Nausea is decreased bb 00:32 Drug: Phenergan 12.5 mg Route: IVP; Site: left antecubital; bb 00:34 Follow up: Response: No adverse reaction bb Intake: 02/16 23:30 IV: 1000ml; Total: 1000ml. bb Outcome: 23:51 Discharge ordered by . pm1 02/17 00:33 Discharged to home ambulatory, with family. bb Condition: stable Discharge instructions given to patient, Instructed on discharge instructions, follow up and referral plans. medication usage, Demonstrated understanding of instructions, follow-up care, medications, Prescriptions given X 2. 00:34 Patient left the ED. bb Signatures: Aruna Farias ds1 Elena Ram RN RN bb Scarlett Burroughs RN RN ak1 José Luis Grayson, TIK[facility] EMERGENCY DEPARTMENT AIDE pm1 Taylor Benton ar5
--- NOTE | 2019-02-16 23:52 | EDPHYS ---
Physician Documentation [facility] Name: Amber Giles Age: 33 yrs Sex: Female : 1985 Arrival Date: 02/16/2019 Time: 21:25 Bed 7 Private MD: ED Physician Alexis Winchester HPI: 02/16 22:08 This 33 yrs old Female presents to ER via Ambulatory with complaints of pm1 Vomiting. 22:08 The patient presents to the emergency department with nausea, vomiting. Onset: The pm1 symptoms/episode began/occurred today. Possible causes: unknown. The symptoms are aggravated by food , The symptoms are alleviated by nothing. Associated signs and symptoms: Pertinent positives: nausea, vomiting, Pertinent negatives: abdominal pain, diarrhea, dysuria, fever. Severity of symptoms: in the emergency department the symptoms have improved. The patient has been recently seen at the [facility] Emergency Department, today, Patient with workup for altered mental status. Labs and CT performed. Patient diagnosed with dehydration and vomiting. Patient also taking Flagyl for bacterial vaginosis. Patient has Zofran PO at home but is unable to keep it down with the vomiting. 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 - Social history:: Smoking status: Patient/guardian denies using tobacco. - Ebola Screening: : No symptoms or risks identified at this time. ROS: 22:08 Constitutional: Negative for fever, chills, and weight loss, Eyes: Negative for injury, pm1 pain, redness, and discharge, ENT: Negative for injury, pain, and discharge, Neck: Negative for injury, pain, and swelling, Cardiovascular: Negative for chest pain, palpitations, and edema, Respiratory: Negative for shortness of breath, cough, wheezing, and pleuritic chest pain. 22:08 Back: Negative for injury and pain, : Negative for injury, bleeding, discharge, and swelling, MS/Extremity: Negative for injury and deformity, Skin: Negative for injury, rash, and discoloration, Neuro: Negative for headache, weakness, numbness, tingling, and seizure. 22:08 Abdomen/GI: Positive for nausea and vomiting, Negative for abdominal pain, diarrhea, constipation. Exam: 22:08 Constitutional: This is a well developed, well nourished patient who is awake, alert, pm1 and in no acute distress. Head/Face: Normocephalic, atraumatic. Eyes: Pupils equal round and reactive to light, extra-ocular motions intact. Lids and lashes normal. Conjunctiva and sclera are non-icteric and not injected. Cornea within normal limits. Periorbital areas with no swelling, redness, or edema. ENT: Nares patent. No nasal discharge, no septal abnormalities noted. Tympanic membranes are normal and external auditory canals are clear. Oropharynx with no redness, swelling, or masses, exudates, or evidence of obstruction, uvula midline. Mucous membranes moist. Neck: Trachea midline, no thyromegaly or masses palpated, and no cervical lymphadenopathy. Supple, full range of motion without nuchal rigidity, or vertebral point tenderness. No Meningismus. Chest/axilla: Normal chest wall appearance and motion. Nontender with no deformity. No lesions are appreciated. Cardiovascular: Regular rate and rhythm with a normal S1 and S2. No gallops, murmurs, or rubs. Normal PMI, no JVD. No pulse deficits. Respiratory: Lungs have equal breath sounds bilaterally, clear to auscultation and percussion. No rales, rhonchi or wheezes noted. No increased work of breathing, no retractions or nasal flaring. Abdomen/GI: Soft, non-tender, with normal bowel sounds. No distension or tympany. No guarding or rebound. No evidence of tenderness throughout. Back: No spinal tenderness. No costovertebral tenderness. Full range of motion. Skin: Warm, dry with normal turgor. Normal color with no rashes, no lesions, and no evidence of cellulitis. MS/ Extremity: Pulses equal, no cyanosis. Neurovascular intact. Full, normal range of motion. 22:08 Neuro: Orientation: is normal, to person, place, time \T\ situation. Mentation: is normal, Motor: moves all fours, Sensation: is normal, no obvious gross deficits. Vital Signs: 21:49 BP 104 / 60; Pulse 80; Resp 16; Temp 97.9; Pulse Ox 100% on R/A; Weight 48.99 kg (R); ak1 Height 5 ft. 1 in. (154.94 cm) (R); Pain 0/10; 23:39 BP 103 / 57; Pulse 101; Resp 16 S; Pulse Ox 100% on R/A; bb 02/17 00:33 BP 105 / 64; Pulse 98; Resp 16 S; Temp 98(O); Pulse Ox 99% on R/A; bb 02/16 21:49 Body Mass Index 20.41 (48.99 kg, 154.94 cm) ak1 MDM: 02/16 21:59 Patient medically screened. [facility] 23:09 Data reviewed: vital signs. Data interpreted: Pulse oximetry: on room air is 100 %. pm1 Interpretation: normal. 23:12 Counseling: I had a detailed discussion with the patient and/or guardian regarding: the pm1 historical points, exam findings, and any diagnostic results supporting the discharge/admit diagnosis, lab results, the need for outpatient follow up, to return to the emergency department if symptoms worsen or persist or if there are any questions or concerns that arise at home. 23:12 ED course: Patient no longer feeling nauseated. Pending PO challenge. pm1 02/16 22:09 Order name: BMP; Complete Time: 22:54 pm1 02/16 22:08 Order name: IV Saline Lock; Complete Time: 22:27 pm1 02/16 22:54 Order name: PO challenge; Complete Time: 23:32 pm1 Administered Medications: 22:30 Drug: NS 0.9% 1000 ml Route: IV; Rate: 1000 ml; Site: left antecubital; 23:30 Follow up: IV Status: Completed infusion; IV Intake: 1000ml bb 22:30 Drug: Zofran 4 mg Route: IVP; Site: left antecubital; bb 02/17 00:18 Follow up: Response: Nausea is decreased bb 00:32 Drug: Phenergan 12.5 mg Route: IVP; Site: left antecubital; bb 00:34 Follow up: Response: No adverse reaction bb Disposition: 09:40 Co-signature as Attending Physician, Alexis Winchester MD I agree with the assessment and [facility] plan of care. Disposition: 02/16/19 23:51 Discharged to Home. Impression: Vomiting, Dehydration. - Condition is Stable. - Discharge Instructions: Dehydration, Adult, Nausea and Vomiting, Adult, Rehydration, Adult. - Prescriptions for Zofran ODT 8 mg Oral tablet,disintegrating - take 1 tablet by ORAL route every 8 hours As needed; 10 tablet. Phenergan 25 mg Rectal Suppository - insert 1 suppository by RECTAL route every 6 hours As needed; 12 suppository. - Medication Reconciliation Form, Thank You Letter, Antibiotic Education, Prescription Opioid Use form. - Follow up: Emergency Department; When: As needed; Reason: Worsening of condition. Follow up: Private Physician; When: 2 - 3 days; Reason: Recheck today's complaints, Continuance of care, Re-evaluation by your physician. - Problem is new. - Symptoms have improved. Signatures: Dispatcher [employer] EDMS Alexis Winchester, Elena White MD, cha, RN RN bb Scarlett Burroughs RN RN ak1 José Luis Grayson, [employer] UNDERWRITER pm1 Corrections: (The following items were deleted from the chart) 00:34 02/16 23:51 02/16/2019 23:51 Discharged to Home. Impression: Vomiting; Dehydration. bb Condition is Stable. Forms are Medication Reconciliation Form, Thank You Letter, Antibiotic Education, Prescription Opioid Use. Follow up: Emergency Department; When: As needed; Reason: Worsening of condition. Follow up: Private Physician; When: 2 - 3 days; Reason: Recheck today's complaints, Continuance of care, Re-evaluation by your physician. Problem is new. Symptoms have improved. pm1
[2019-02-17] MEDS ORDERED: PROMETHAZINE 25 MG/ML VIAL ONE (00:21)
[2019-02-17 02:07] VITALS: BP 105/64; TEMP 98; O2SAT 99
== END 2019-02-17 00:34 | disposition home or self-care (01) ==
LOC: ER 21:23
DX: R11.10 Vomiting, unspecified (principal); E86.0 Dehydration; Z88.3 Allergy status to other anti-infective agents
CPT/HCPCS: 36415; 80048; 96361; 96374; 96375; 99284; J2405; J2550; J7030

== ENCOUNTER 2022-04-22 07:46 | Day surgery (SDC) | payer BC ==
[2022-04-19 11:38] LABS: Absolute Lymphocytes (CBC) 1.8 K/uL (0.7-4.9); Hematocrit 40.8 % (36.0-45.0); MCV 90.6 fL (80-100); RBC Red Blood Cell Count 4.51 M/uL (3.86-4.86)
[2022-04-19 12:11] LABS: ALT/SGPT 20 U/L (12-78); AST/SGOT 11 U/L (15-37); Albumin 3.3 g/dL (3.4-5.0); Alkaline Phosphatase 68 U/L (45-117); Amylase 99 U/L (25-115); BUN Blood Urea Nitrogen 11 mg/dL (7-18); Bicarbonate 30 mmol/L (21-32); Bilirubin Direct < 0.1 mg/dL (0-0.2); Bilirubin Total 0.2 mg/dL (0.2-1.0); Glomerular Filtration Rate 101 ml/min (=/>90); Glucose Level 99 mg/dL (74-106); Lipase 226 U/L (73-393); Potassium 4.2 mmol/L (3.5-5.1); Protein, Total 6.5 g/dL (6.4-8.2); Sodium Level 139 mmol/L (136-145)
[2022-04-22] MEDS ORDERED: Ringers Lactate 1,000 ML IV ONE (08:06)
[2022-04-22] MEDS ORDERED: ROCURONIUM 50 MG/5 ML VIAL IV ONE (08:16)
[2022-04-22] MEDS ORDERED: MIDAZOLAM HCL 2 MG/2 ML INJ ONE (08:16)
[2022-04-22] MEDS ORDERED: propofoL 200 MG/20 ML VIAL IV ONE (08:16)
[2022-04-22] MEDS ORDERED: dexAMETHasone 10 MG/ML VIAL ONE (08:16)
[2022-04-22] MEDS ORDERED: FENTANYL CITR 100 MCG/2 ML ONE (08:16)
[2022-04-22] MEDS ORDERED: ONDANSETRON 4 MG/2 ML VIAL ONE ×2 (08:17→10:09)
[2022-04-22] MEDS ORDERED: LIDOCAINE 2% MPF 5 ML VIAL ONE (08:17)
[2022-04-22] MEDS ORDERED: CEFOXITIN SODIUM 1 GM/VIAL ONE (08:24)
[2022-04-22] MEDS ORDERED: KETOROLAC 30 MG/ML INJ ONE (09:15)
[2022-04-22 09:23] VITALS: O2SAT 100
--- NOTE | 2022-04-22 09:42 | P.BOP ---
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
[2022-04-22] MEDS: MEPERIDINE HCL 25 MG/ML SYR ONE ×2 (10:04→10:09)
[2022-04-22] MEDS ORDERED: HYDROMORPHONE HCL 1 MG/ML INJ ONE (10:09)
--- NOTE | 2022-04-22 12:02 | DS ---
Diagnoses: Cholecystitis, cholecystitis, biliary dyskinesia, and right upper quadrant abdominal pain . Procedure: Laparoscopic cholecystectomy. Disposition: Home. Activity: As tolerated. No heavy lifting. Plan: Follow up in my office in 1 week. Call for appointment at [phone]. Keep area dry for 24 guy rs and then may shower. Keep Steri-Strips intact. DESMOND/CARMEL Voice ID: [id number] Report ID: [id number]
--- NOTE | 2022-04-22 12:02 | OP ---
Date of Procedure: 04/22/2022 Surgeon: Celso Chan MD Hydro Station Operator: Samina Rodrigues. Preoperative Diagnoses: Right upper quadrant abdominal pain, biliary dyskinesia, cholecystitis. Postoperative Diagnoses: Right upper quadrant abdominal pain, biliary dyskinesia, cholecystitis. Procedure: Laparoscopic cholecystectomy. Estimated Blood Loss: Less than 10 mL. Specimen: Gallbladder. Finding: As above. Anesthesia: General plus local. Complications: None. Indication: This is the case of a 36-year-old patient, who comes to us with above diagnoses. Fully explained the benefits, alternatives, and risks of laparoscopic possible open cholecystectomy, which include, but not limited to infection, bleeding, damage to adjacent structures, anesthesia complicati on, choledocholithiasis, bile leak, pancreatitis, MO, and even . She also understands this may not relieve any symptoms. She might need more than one surgical intervention. She understood, marino d a consent. Procedure In Detail: The patient was brought to the operating room, placed in supine position. Anes thesia was induced without complication. Abdominal area was prepped and draped in the usual sterile fashion. Marcaine 0.5% was injected for local anesthesia followed by sharp incision of the skin in t he infraumbilical region. The incision was carried down to fascia, which was opened under direct vis ion. Vicryl #1 placed inside the fascia. Dorothea trocar was carefully introduced. Pneumoperitoneum was obtained. I placed 3 more trocars, 5 mm each one of them in the epigastric right upper quadrant area under direct visualization. This allowed me to put a grasper in the fundus of the gallbladder, another grasper in the infundibulum, retracting the gallbladder in the inferolateral fashion, exposin g the triangle of Calot, and obtaining critical view. Cystic duct and cystic artery were clearly iso lated, freed circumferentially and a connection between those and the gallbladder were clearly identi fied. I proceeded to ligate those by using at least 3 clips proximal, 1 clip distal, ligation in the middle. Same was done with the cystic artery. A small little branch of the cystic artery was also ligated using the same technique. Hepatic arteries and common bile duct were protected at all times. Gallbladder removed from the liver using Bovie cauterizer and removed from abdominal cavity using a n EndoCatch through the umbilical incision. The area was inspected once again. No bile leak. No bl eeding. At that moment, I proceeded to remove the trocars under direct vision. Deflated pneumoperit oneum. Closed the fascia with #1 Vicryl. Irrigated subcutaneous tissue, closed that with 3-0 chromi c and skin with a 3-0 chromic subcuticular and Steri-Strips on top. Sponge count, instrument counts correct. The patient tolerated the procedure well. The patient was sent to recovery in stable condi tion. DESMOND/CARMEL Voice ID: [id number] Report ID: [id number]
[2022-04-22 13:43] VITALS: TEMP 97
[2022-04-22 13:44] VITALS: BP 109/40
== END 2022-04-22 11:00 | disposition home or self-care (01) ==
LOC: OR 07:46
PROVIDERS: ATTEND Surgery
PROC: 0FT44ZZ Resection of Gallbladder, Percutaneous Endoscopic Approach (ICD-10-PCS; principal; 2022-04-22 09:15)
DX: K81.9 Cholecystitis, unspecified (principal); R10.11 Right upper quadrant pain; K82.8 Other specified diseases of gallbladder
CPT/HCPCS: 85025; 80048; 36415; 82150; 80076; 88304; 83690; 47562; J2704; J2001; J2250; J3010; J1100; J2175; J1170; J7120; J0694; J2405 ×2

== ENCOUNTER 2023-10-17 08:41 | Emergency (ER) | payer BC, OTHER ==
--- OUTSIDE RECORDS SUMMARY | 2023-10-17 08:45 | XMS REPORT | Continuity of Care Document ---
Author Name Unknown Address [address] [facility] [address] [place] [address] [facility] Address [address] [facility] [address] [place] [address] Care Team Providers Care Mat Linker Name Role Phone JONAH DIANE Primary Care Physician Unavailab JONAH Patel Attending Clinician Unavailable DR LITTLE HAINES Attending Clinician Unavailable [phone] Attending Clinician Unavailable DWAYNE HENDRICKSON Attending Clinician Unavailable Dwayne Hendrickson MD Attending Clinician ROWAN Attending Clinician Unavailable DR JONAH DIANE Attending Clinician Unavailab le [phone] Attending Clinician Unavailable TANGELA GAYTAN Attending Clinician Unavailable Cristofer Attending Clinician Unavailable 0 Attending Clinician Unavailable DR BRENDA ODOM Attending Clinician Unavail able [phone] Attending Clinician Unavailable DR MISAEL WEBBER Attending Clinician Unavailable [phone] Attending Clinician Unavailable Rusty Simon Attending Clinician Doctor Unassigned, [place] Attending Clinician KATRINA Ocasio Attending Clinician Unavailable STEPHY BARLOW Attending Clinician Unavailable ZITA RÍOS Attending Clinician UnaSoraida Maldonado Attending Clinician UnavailINÉS Torre Attending Clinician UnavailDR LITTLE aCrr Admitting Clinician Unavailable ROWAN Admitting Clinician Unavailable DR JONAH DIANE Admitting Clinician Unavailab le White_M Admitting Clinician Unavailable 0 Admitting Clinician Unavailable DR BRENDA ODOM Admitting Clinician Unavail able DR MISAEL WEBBER Admitting Clinician Unavailable KATRINA DELUCA Admitting Clinician Unavailable Soraida Pickard Admitting Clinician UnavailINÉS Torre Admitting Clinician Unavailabl e Payers Payer Name Policy Type Policy Number Effective Date Expirati on Date Source [facility] BLUE SHIELD - OP [id number] [facility] [place] STAR [id number] 2023 00:00:00 [place] [id number] [place] [id number] 2021 00:00:00 [place] [facility] [place]ICAID) [id number] Problems Condition Name Condition Details Condition Category Status Onset Date Resolution Date Last Treatment Date Treating Clinician Comments Source Diverticul osis of colon Diverticul osis of Colon Problem Active 09-14 00:00: 00 [facility] contractio ns contractio ns Disease Active 03-16 00:00: 00 [facility] Mitral valve prolapse Mitral valve prolapse Disease Active 03-16 00:00: 00 [facility] Asthma Asthma Disease Active 03-16 00:00: 00 [facility] Allergies, Adverse Reactions, Alerts Allergy Name Allergy Type Status Severity Reaction(s) Onset Date Inactive Date Treating Clinician Comments Source NITROFUR ANTOIN MONOHYD/ M-CRYST DRUG Active Unknown-Cmnt 03-16 00:00: 00 [facility] Nitrofur antoin Monohyd/ M-Cryst Propensi ty to adverse reaction s Active Unknown - See comments 03-16 00:00: 00 [facility] Macrobid Allergy to substanc e Active [facility] Social History Social Habit Start Date Stop Date Quantity Comments Source Sexual orientation U [facility] Sex Assigned At 1985 00:00:00 1985 00:00:00 [facility] Smoking Status Start Date Stop Date Source Former Smoker [facility] Light Tobacco Smoker [facility] Tobacco smoking consumption unknown [facility] Medications Ordered Medication Name Filled Medication Name Start Date Stop Date Current Medication? Ordering Clinician Indication Dosage Frequency Signature (SIG) Comments Components Source metoclopram uriel HCl (REGLAN) injection 10 mg 10-13 22:15: 00 10-13 22:22 :00 No 10mg 10 mg, Slow IV Push, ONCE, 1 dose, On Fri10/14/23 at 1715, [facility] NaCl 0.9% (NS) bolus infusion 1,000 mL 10-13 21:00: 00 10-13 23:20 :00 No 1000mL at 999 mL/hr, 1,000 mL, IV Infusion, ONCE, 1 dose, On Fri10/14/23 at 1600, [facility] doxylamine- pyridoxine, vit B6, (DICLEGIS) 10-10 mg per tablet 10-13 00:00: 00 Yes [id number] 1{tbl} Take 1 tablet by mouth in the morning and 1 tablet in the evening. [facility] No known medications No Un rachid [facility] No known medications No Un rachid [facility] No known medications No Un rachid [facility] metoprolol succinate ER 25 mg tablet,exte nded release 24 hr TAKE 1 & 1/2 (ONE & ONE-HALF) TABLETS BY MOUTH ONCE DAILY metoprolol succinate ER 25 mg tablet,exte nded release 24 hr TAKE 1 & 1/2 (ONE & ONE-HALF) TABLETS BY MOUTH ONCE DAILY No metoprolol succinate ER 25 mg tablet,ext ended release 24 hr TAKE 1 & 1/2 (ONE & ONE-HALF) TABLETS BY MOUTH ONCE DAILY [facility] Diflucan 150 mg tablet Take 1 tablet every other day by oral route for 4 days. Diflucan 150 mg tablet Take 1 tablet every other day by oral route for 4 days. No 1 Q2D Diflucan 150 mg tablet Take 1 tablet every other day by oral route for 4 days. [facility] metoprolol tartrate 25 mg tablet TAKE 1 TABLET BY MOUTH TWICE DAILY metoprolol tartrate 25 mg tablet TAKE 1 TABLET BY MOUTH TWICE DAILY No metoprolol tartrate 25 mg tablet TAKE 1 TABLET BY MOUTH TWICE DAILY [facility] acetaminoph en 300 mg-codeine 30 mg tablet TAKE 1 TABLET BY MOUTH EVERY 4 TO 6 HOURS NEEDED acetaminoph en 300 mg-codeine 30 mg tablet TAKE 1 TABLET BY MOUTH EVERY 4 TO 6 HOURS NEEDED No acetaminop hen 300 mg-codeine 30 mg tablet TAKE 1 TABLET BY MOUTH EVERY 4 TO 6 HOURS NEEDED [facility] amoxicillin 500 mg capsule amoxicillin 500 mg capsule No amoxicilli n 500 mg capsule [facility] azithromyci n 500 mg tablet azithromyci n 500 mg tablet No azithromyc in 500 mg tablet [facility] ciprofloxac in 0.3 % eye drops INSTILL 5 DROPS INTO RIGHT EAR TWICE DAILY FOR 7 DAYS ciprofloxac in 0.3 % eye drops INSTILL 5 DROPS INTO RIGHT EAR TWICE DAILY FOR 7 DAYS No ciprofloxa maddie 0.3 % eye drops INSTILL 5 DROPS INTO RIGHT EAR TWICE DAILY FOR 7 DAYS [facility] ciprofloxac in 500 mg tablet ciprofloxac in 500 mg tablet No ciprofloxa maddie 500 mg tablet [facility] CitraNatal Assure 35 mg iron-1 mg-50 mg-300 mg oral pack CitraNatal Assure 35 mg iron-1 mg-50 mg-300 mg oral pack No CitraNatal Assure 35 mg iron-1 mg-50 mg-300 mg oral pack [facility] Citranatal B-Calm (Fe Gluc) 20 mg iron-1 mg-25 mg/25 mg tablets Citranatal B-Calm (Fe Gluc) 20 mg iron-1 mg-25 mg/25 mg tablets No Citranatal B-Calm (Fe Gluc) 20 mg iron-1 mg-25 mg/25 mg tablets [facility] clarithromy maddie 500 mg tablet clarithromy maddie 500 mg tablet No clarithrom ycin 500 mg tablet [facility] dicyclomine 10 mg capsule TAKE 1 CAPSULE BY MOUTH 4 TIMES DAILY BEFORE MEAL(S) AND NIGHTLY dicyclomine 10 mg capsule TAKE 1 CAPSULE BY MOUTH 4 TIMES DAILY BEFORE MEAL(S) AND NIGHTLY No dicyclomin e 10 mg capsule TAKE 1 CAPSULE BY MOUTH 4 TIMES DAILY BEFORE MEAL(S) AND NIGHTLY [facility] dicyclomine 20 mg tablet TAKE 1 TABLET BY MOUTH EVERY 8 HOURS NEEDED dicyclomine 20 mg tablet TAKE 1 TABLET BY MOUTH EVERY 8 HOURS NEEDED No dicyclomin e 20 mg tablet TAKE 1 TABLET BY MOUTH EVERY 8 HOURS NEEDED [facility] fluconazole 150 mg tablet Take 1 tablet every 72 hours by oral route. fluconazole 150 mg tablet Take 1 tablet every 72 hours by oral route. No 1 fluconazol e 150 mg tablet Take 1 tablet every 72 hours by oral route. [facility] hydrocodone 10 mg-acetamin ophen 325 mg tablet TAKE 1 TABLET BY MOUTH EVERY 6 HOURS NEEDED FOR MODERATE PAIN hydrocodone 10 mg-acetamin ophen 325 mg tablet TAKE 1 TABLET BY MOUTH EVERY 6 HOURS NEEDED FOR MODERATE PAIN No hydrocodon e 10 mg-acetami nophen 325 mg tablet TAKE 1 TABLET BY MOUTH EVERY 6 HOURS NEEDED FOR MODERATE PAIN [facility] metronidazo le 500 mg tablet metronidazo le 500 mg tablet No metronidaz ole 500 mg tablet [facility] Nexium 40 mg capsule,del ayed release Nexium 40 mg capsule,del ayed release No Nexium 40 mg capsule,de layed release [facility] nifedipine ER 90 mg tablet,exte nded release 24 hr nifedipine ER 90 mg tablet,exte nded release 24 hr No nifedipine ER 90 mg tablet,ext ended release 24 hr [facility] nystatin 100,000 unit/gram topical cream APPLY TO THE AFFECTED AREA(S) BY TOPICAL ROUTE 2 TIMES PER DAY nystatin 100,000 unit/gram topical cream APPLY TO THE AFFECTED AREA(S) BY TOPICAL ROUTE 2 TIMES PER DAY No nystatin 100,000 unit/gram topical cream APPLY TO THE AFFECTED AREA(S) BY TOPICAL ROUTE 2 TIMES PER DAY [facility] omeprazole 40 mg capsule,del ayed release TAKE 1 CAPSULE BY MOUTH ONCE DAILY omeprazole 40 mg capsule,del ayed release TAKE 1 CAPSULE BY MOUTH ONCE DAILY No omeprazole 40 mg capsule,de layed release TAKE 1 CAPSULE BY MOUTH ONCE DAILY [facility] ondansetron HCl 4 mg tablet TAKE 1 TABLET BY MOUTH EVERY 12 HOURS NEEDED ondansetron HCl 4 mg tablet TAKE 1 TABLET BY MOUTH EVERY 12 HOURS NEEDED No ondansetro n HCl 4 mg tablet TAKE 1 TABLET BY MOUTH EVERY 12 HOURS NEEDED [facility] prednisone 5 mg tablet prednisone 5 mg tablet No prednisone 5 mg tablet [facility] Select-OB (folic acid) 29 mg iron-1 mg chewable tablet Select-OB (folic acid) 29 mg iron-1 mg chewable tablet No Select-OB (folic acid) 29 mg iron-1 mg chewable tablet [facility] sulfamethox azole 800 mg-trimetho prim 160 mg tablet TAKE 1 TABLET BY MOUTH TWICE DAILY sulfamethox azole 800 mg-trimetho prim 160 mg tablet TAKE 1 TABLET BY MOUTH TWICE DAILY No sulfametho xazole 800 mg-trimeth oprim 160 mg tablet TAKE 1 TABLET BY MOUTH TWICE DAILY [facility] Immunizations Ordered Immunization Name Filled Immunization Name Date Status Comments Source Td (adult), adsorbed - ML Td (adult), adsorbed - ML Unknown Completed [facility] Tdap - ML Tdap - ML Unknown Completed [facility] influenza, seasonal, injectable, preservative free - ML influenza, seasonal, injectable, preservative free - ML Unknown Completed [facility] Tdap - ML Tdap - ML Unknown Completed [facility] Hep B, adult - ML Hep B, adult - ML Unknown Completed [facility] MMR - ML MMR - ML Unknown Completed [facility] HPV, quadrivalent - ML HPV, quadrivalent - ML Unknown Completed [facility] HPV, quadrivalent - ML HPV, quadrivalent - ML Unknown Completed [facility] Tdap - ML Tdap - ML Unknown Completed [facility] Hep B, adolescent or pediatric - ML Hep B, adolescent or pediatric - ML Unknown Completed [facility] Hep B, adolescent or pediatric - ML Hep B, adolescent or pediatric - ML Unknown Completed [facility] Vital Signs Vital Name Observation Time Observation Value Comments S ource Systolic blood pressure 2023-10-14 23:21:00 109 mm[Hg] [facility] Diastolic blood pressure 2023-10-14 23:21:00 60 mm[Hg] [facility] Heart rate 2023-10-14 23:21:00 73 /min [facility] Respiratory rate 2023-10-14 23:21:00 14 /min [facility] Oxygen saturation in Arterial blood by Pulse oximetry 2023-10-14 23:21:00 100 /min [facility] Body temperature 2023-10-14 18:10:00 37.11 Sue [facility] Body height 2023-10-14 18:10:00 154.9 cm [facility] Body weight 2023-10-14 18:10:00 48.263 kg [facility] BMI 2023-10-14 18:10:00 20.10 kg/m2 [facility] Body Weight 2023-09-02 00:00:00 110 [lb_av] [facility] BP Diastolic 2023-09-02 00:00:00 67 mm[Hg] [facility] Height 2023-09-02 00:00:00 61 [in_i] [facility] BMI (Body Mass Index) 2023-09-02 00:00:00 20.8 kg/m2 [facility] BP Systolic 2023-09-02 00:00:00 101 mm[Hg] Ch[facility] the[facility] BP Diastolic 2022-07-10 00:00:00 61 mm[Hg] [facility] Height 2022-07-10 00:00:00 61.5 [in_i] [facility] BMI (Body Mass Index) 2022-07-10 00:00:00 22.2 kg/m2 [facility] BP Systolic 2022-07-10 00:00:00 99 mm[Hg] [facility] Body Weight 2022-07-10 00:00:00 119.2 [lb_av] [facility] BP Diastolic 2020-12-20 00:00:00 82 mm[Hg] [facility] Height 2020-12-20 00:00:00 61 [in_i] Laney regalado [facility] BMI (Body Mass Index) 2020-12-20 00:00:00 23.8 kg/m2 [facility] BP Systolic 2020-12-20 00:00:00 115 mm[Hg] Amor cardenas [facility] Body Weight 2020-12-20 00:00:00 126 [lb_av] Lexa schroedera [facility] BP Diastolic 2019-10-19 00:00:00 60 mm[Hg] Lexa lakhanirda [facility] Height 2019-10-19 00:00:00 61 [in_i] Laney regalado [facility] BMI (Body Mass Index) 2019-10-19 00:00:00 24 kg/m2 [facility] BP Systolic 2019-10-19 00:00:00 98 mm[Hg] Amor cardenas [facility] Body Weight 2019-10-19 00:00:00 126.8 [lb_av] [facility] Procedures Procedure Date / Time Performed Performing Clinician Source US FIRST TRIMESTER LESS THAN 14 WEEKS WITH TRANSVAGINAL 2023-10-14 21:32:16 Dwayne Hendrickson [facility] POCT TEST 2023-10-14 19:15:00 Eri Hendrickson [facility] COMP. METABOLIC PANEL (11028) 2023-10-14 19:12:00 Dwayne Hendrickson [facility] TOTAL BETA HCG ASSAY 2023-10-14 19:12:00 Sarina Hendrickson [facility] CBC WITH DIFF 2023-10-14 19:12:00 Dwayne Hendrickson [facility] US, transvaginal 2020-12-20 00:00:00 Amor cardenas [facility] REFERRAL- REQUEST/RESPONSE 2020-09-14 05:01:00 Doctor Unassigned, [place] [facility] AUTHORIZATION FOR RELEASE OF PHI 2020-01-24 05:01:00 Doctor Unassigned, [place] [facility] Plan of Care Planned Activity Planned Date Details Comments Source Diagnostic Test Pending 2023-09-02 00:00:00 test, urine [code = test, urine] [facility] Diagnostic Test Pending 2022-07-10 00:00:00 urinalysis, dipstick [code = urinalysis, dipstick] [facility] Diagnostic Test Pending 2022-07-10 00:00:00 CT + NG + TV, DNA, urine/swab [code = CT + NG + TV, DNA, urine/swab] [facility] Diagnostic Test Pending 2022-07-10 00:00:00 culture, urine [code = culture, urine] [facility] Instructions [facility] Encounters Start Date/Time End Date/Time Encounter Type Admission Type Attending [facility] Care Department Encounter ID Source 2022-10-11 09:00:00 Inpatient JONAH REYES [facility] [id number] [facility] 2022-01-14 13:29:34 Outpatient LITTLE HAINES [id number] [facility] [id number] [facility] 2022-01-08 16:33:56 Outpatient LITTLE HAINES [id number] [facility] [id number] [facility] 2023-10-14 13:12:00 2023-10-14 18:26:00 Emergency X DWAYNE HENDRICKSON [facility] ERT [id number] [facility] 2023-10-14 13:12:00 2023-10-14 18:26:00 Emergency Dwayne Hendrickson [facility] [id number] [facility] 2023-09-02 00:00:00 2023-09-02 00:00:00 Outpatient YEN_TWYLA FORD [facility] [id number] [facility] 2023-09-02 00:00:00 2023-09-02 00:00:00 Stephy Barlow, PORTABLE FEED MILL OPERATOR: [address] [place] [address] , Ph. [facility] GYN [id number] [facility] 2023-09-01 00:00:00 2023-09-01 00:00:00 Outpatient YEN_TWYLA [facility] [id number] [facility] 2022-10-14 08:58:00 2022-10-14 08:58:00 Outpatient JONAH REYES [facility] [id number] [facility] 2022-10-07 11:39:00 2022-10-07 11:39:00 Outpatient JONAH RIVERA [id number] [facility] [id number] [facility] 2022-07-10 15:09:00 2022-07-10 15:09:00 Outpatient TANGELA CASTILLO [facility] [id number] [facility] 2022-07-10 00:00:00 2022-07-10 00:00:00 Outpatient White_M [facility] [id number] [facility] 2022-07-10 00:00:00 2022-07-10 00:00:00 Tangela Gaytan [facility]: [address], [place] [address] , Ph. [phone] [facility] [id number] [facility] 2022-07-09 00:00:00 2022-07-09 00:00:00 Outpatient White_M [facility] [id number] [facility] 2022-04-03 00:00:00 2022-04-03 00:00:00 Outpatient 0 PRIV PRIV [id number] [facility] 2022-03-06 15:04:00 2022-03-06 15:05:00 Outpatient FELIX CHAMBERLAINAIR [id number] [facility] [id number] [facility] 2022-01-14 13:30:00 2022-01-14 13:30:00 Outpatient N MISAEL WEBBER [id number] [facility] [id number] [facility] 2022-01-08 16:35:00 2022-01-08 16:35:00 Outpatient N ASHU HAINESQUE [id number] [facility] [id number] [facility] 2020-12-20 02:23:00 2020-12-20 02:23:00 Outpatient White_M [facility] [id number] [facility] 2020-12-20 00:00:00 2020-12-20 00:00:00 Outpatient YEN_TWYLA LOPEZ [facility] [id number] [facility] 2020-12-20 00:00:00 2020-12-20 00:00:00 Stephy Barlow, PORTABLE FEED MILL OPERATOR: [address], [place] [address] , Ph. [facility] CT MRI TECHNOLOGIST [id number] [facility] 2020-10-30 00:00:00 2020-10-30 00:00:00 Letter (Out) Rusty Simon [facility] [id number] [facility] 2020-09-14 00:00:00 2020-09-14 00:00:00 Orders Only Doctor Unassigned, [place] [facility] [id number] [facility] 2020-01-24 00:00:00 2020-01-24 00:00:00 Orders Only Doctor Unassigned, [place] [facility] [id number] [facility] 2019-10-30 10:59:00 2019-10-30 10:59:00 Outpatient YEN_SOCOI SSA [facility] [id number] [facility] 2019-10-19 04:59:00 2019-10-19 04:59:00 Outpatient YEN_SOCOI SSA [facility] [id number] [facility] 2019-10-19 00:00:00 2019-10-19 00:00:00 Stephy Barlow, PORTABLE FEED MILL OPERATOR: [address], [place] [address] , Ph. [facility] CT MRI TECHNOLOGIST [id number] [facility] 2019-10-06 10:40:00 2019-10-06 10:40:00 Outpatient Jonah Reyes [facility] [id number] [facility] 2019-09-28 03:15:00 2019-09-28 03:15:00 Outpatient YEN_TWYLA LOPEZ [facility] [id number] [facility] 2019-07-26 05:32:00 2019-07-26 05:32:00 Outpatient YEN_SOCOI JOHN [facility] [id number] [facility] 2019-06-14 12:02:21 2019-06-14 15:14:00 Emergency X DELUCA, KATRINA [facility] ERT [id number] [facility] 2018-10-01 10:16:00 2018-10-01 10:16:00 Outpatient STEPHY DELEON [facility] [id number] [facility] 2018-09-14 11:52:00 2018-09-14 11:52:00 Outpatient STEPHY DELEON [facility] [id number] [facility] 2017-06-11 09:49:00 2017-06-11 09:49:00 Outpatient ZITA POST [facility] [id number] [facility] 2017-05-29 12:10:00 2017-05-29 12:10:00 Outpatient ZITA POST [facility] [id number] [facility] 2017-05-21 16:48:00 2017-05-21 16:48:00 Outpatient ZITA POST [facility] [id number] [facility] 2016-03-29 12:48:00 2016-03-29 12:48:00 Outpatient STEPHY DELEON [facility] [id number] [facility] 2015-04-19 22:38:00 2015-04-21 08:55:00 Inpatient ER NeerajSoraida [facility] [id number] [facility] 2015-04-12 12:54:00 2015-04-12 18:05:00 Emergency ER Soraida Pickard [facility] [id number] [facility] 2015-03-29 00:24:00 2015-03-29 03:05:00 Emergency ER Soraida Pickard [facility] [id number] [facility] 2015-03-24 14:53:00 2015-03-24 14:53:00 Outpatient STEPHY DELEON [facility] [id number] [facility] 2015-03-15 14:05:00 2015-03-15 21:33:00 Inpatient ER INÉS ALCALA [facility] [id number] [facility] 2014-11-18 14:40:00 2014-11-18 14:40:00 Outpatient Jonah Reyes [facility] [id number] [facility] Results Test Description Test Time Test Comments Results Result Comments Source US FIRST TRIMESTER LESS THAN 14 WEEKS WITH TRANSVAGINAL 22:44:45 EXAM: US FIRST TRIMESTER LESS THAN 14 WEEKS WITH TRANSVAGINAL HISTORY: 38 years -old Female with r/o ectopic . TECHNIQUE: Survey transabdominal and transvaginal ultrasound imaging of thepelvis was performed including color Doppler evaluation with representativeimages obtained. M-mode was used to evaluate the heart. COMPARISON: Pelvic ultrasound dated 06/13/2017 FINDINGS: Uterus: Size: 2.9 x 2.6 x 2.3 cm. An intrauterine gestational sac is present. [place] diameter is 2 cm. pole is visualized with crown-rump lengthmeasuring 1 cm. Yolk sac is measuring 0.2 cm. heart activity ispresent, measuring 140 bpm. A 1.3 x 0.4 x 2.3 cm hypoechoic area is seen adjacent to the gestationalsac concerning for subchorionic hemorrhage. Right Adnexa:Ovary: The right ovary measures 2.9 x 2.6 x 2.3 cm. A corpus callosum isseen in the right side. The right ovary is unremarkable.Other: None Left Adnexa:The left ovary is not visualized. [facility] [place]OLIC PANEL ([id number])2023-10-14 21:20:16* Test Item Value Reference Range Interpretation Comme nts NA (test code = 2695847633) 137 mmol/L 135-145 K (test code = 1230405579) 3.4 mmol/L 3.5-5.0 L CL (test code = 9365055357) 102 mmol/L 98-108 CO2 TOTAL (test code = 1796376876) 25 mmol/L 23-31 AGAP (test code = 6228986161) 10 2-16 BUN (test code = 7490025404) 13 mg/dL 7-23 GLUCOSE (test code = 7803053239) 93 mg/dL 70-110 CREATININE (test code = 2160-0) 0.63 mg/dL 0.50-1.04 TOTAL BILI (test code = 7563573868) 0.6 mg/dL 0.1-1.1 CALCIUM (test code = 7783330677) 9.0 mg/dL 8.6-10.6 T PROTEIN (test code = 0327895613) 6.7 g/dL 6.3-8.2 ALBUMIN (test code = 9696932448) 4.0 g/dL 3.5-5.0 ALK PHOS (test code = 0913873585) 77 U/L 34-122 ALTv (test code = 1742-6) 20 U/L 5-35 AST(SGOT) (test code = 5890962096) 26 U/L 13-40 eGFR (test code = 27792-6) 115.2 mL/min/1.73m2 CKD-EPI eGFR (2020). Assuming creatinine has been stable day-to-day for at least three months, the eGFR indicates Category G1 (>= 90 mL/min/1.73 m2) Lab Interpretation (test code = 73405-6) Abnormal [facility] WITH [id number] 20:21:08* Test Item Value Reference Range Interpretation Comme nts WBC (test code = 6690-2) 10.72 4.30-11.10 RBC (test code = 789-8) 4.59 3.93-5.25 HGB (test code = 718-7) 14.0 g/dL 11.6-15.0 HCT (test code = 4544-3) 40.5 % 35.7-45.2 MCV (test code = 787-2) 88.2 fL 80.6-95.5 MCH (test code = 785-6) 30.5 pg 25.9-32.8 MCHC (test code = 786-4) 34.6 g/dL 31.6-35.1 RDW-SD (test code = 03927-0) 39.1 fL 39.0-49.9 RDW-CV (test code = 788-0) 12.1 % 12.0-15.5 PLT (test code = 777-3) 265 166-358 MPV (test code = 41188-6) 11.4 fL 9.5-12.9 NRBC/100 WBC (test code = 0084502626) 0.0 0.0-10.0 NRBC x10^3 (test code = 1467603553) See_Comment [Automated messa ge] The system which generated this result transmitted reference range: 10*3/?L. The reference range was not used to interpret this result as normal/abnormal. GRAN MAT (NEUT) % (test code = 770-8) 72.4 % IMM GRAN % (test code = 2791274631) 0.30 % LYMPH % (test code = 736-9) 19.4 % MONO % (test code = 5905-5) 7.1 % EOS % (test code = 713-8) 0.1 % BASO % (test code = 706-2) 0.7 % GRAN MAT x10^3(ANC) (test code = 2639090704) 7.77 10*3/uL 1.88-7.09 H IMM GRAN x10^3 (test code = 8702076592) 0.03 10*3/uL 0.00-0.06 LYMPH x10^3 (test code = 731-0) 2.08 10*3/uL 1.32-3.29 MONO x10^3 (test code = 742-7) 0.76 10*3/uL 0.33-0.92 EOS x10^3 (test code = 711-2) 0.03-0.39 L BASO x10^3 (test code = 704-7) 0.07 10*3/uL 0.01-0.07 Lab Interpretation (test code = 27142-3) [facility] 19:15:00* Test Item Value Reference Range Interpretation Comme nts POCT PREG (test code = 1605) Positive On board controls acceptable with C Line (test code = 3574) Yes POCT PREG LOT # (test code = 3575) [id number] POCT PREG TEST DATE ( test code = 3576) 08/06/2024 Lab Interpretation (test cod e = 20426-7) Normal [facility], uuyym3526-00-71 10:24:00* Test Item Value Reference Range Interpretation Comme nts HCG (test code = HCG) negative [facility] Outreach Programculture,urine pres id ayjgu1956-65-75 15:39:00* Test Item Value Reference Range Interpretation Comme nts culture,urine (test code = culture,urine) specimen has been received in lab and IS in progress. [facility] - Mwykt3704-58-64 11:55:16* Test Item Value Reference Range Interpretation Comme nts Leukocytes (test code = Leukocytes) Negative Nitrite (test code = Nitrite) negative Urobilinogen (test code = Urobilinogen) .2 Protein (test code = Protein) Negative pH (test code = pH) 5.5 Blood (test code = Blood) Non-Hemolyzed: Trace Specific Effort (test code = Specific Effort) 1.015 Ketone (test code = Ketone) Negative Bilirubin (test code = Bilirubin) Negative Glucose (test code = Glucose) Negative Appearance (test code = Appearance) Clear Color (test code = Color) Yellow [facility] Center[facility] identified in Urine by Qiwlaqh2418-71-31 00:00:00* Test Item Value Reference Range Interpretation Comme nts Bacteria identified in Urine by Culture (test code = 630-4) no growth [facility]dipstick[facility] - Zaptr9374-50-44 09:11:00* Test Item Value Reference Range Interpretation Comme nts Leukocytes (test code = Leukocytes) neg Nitrite (test code = Nitrite) neg Urobilinogen (test code = Urobilinogen) 0.2 Protein (test code = Protein) neg pH (test code = pH) 6.0 Blood (test code = Blood) small Specific Effort (test code = Specific Effort) 1.030 Ketone (test code = Ketone) pos Bilirubin (test code = Bilirubin) neg Glucose (test code = Glucose) neg [facility]Cytology report of Cervical or vaginal smear or scraping Cyto stain.thin bpes6239-87-40 00:00:00* Test Item Value Reference Range Interpretation Comme nts age gdln acog testing (test code = age gdln acog testing) 30-65 Cytology report of Cervical or vaginal smear or scraping Cyto stain (test code = 07785-8) comment Statement of adequacy [Interpretation] of Cervical or vaginal smear or scraping by Cyto stain (test code = 51741-4) comment [employer] who read Cyto sta in of Cervical or vaginal smear or scraping (test code = 60872-4) comment QC reviewed by: (test code = QC reviewed by:) comment Microscopic observation [Uriel ntifier] in Unspecified specimen by Other stain (test code = 93056-1) . note: (test code = note:) comment Cytology report of Cervical or vaginal smear or scraping Cyto stain.thin prep (test code = 23628-7) comment Human papilloma virus 16+18+31+33+35+39+45+51+52+56+58+59+ 66+68 DNA [Presence] in Cervix by Probe with signal amplification (test code = 63105-5) negative negative Chlamydia trachomatis rRNA [Presence] in Cervix by SHANEL with probe detection (test code = 93780-0) negative negative Neisseria gonorrhoeae rRNA [Presence] in Cervix by SHANEL with probe detection (test code = 04025-6) negative negative Trichomonas vaginalis rRNA [Presence] in Unspecified specimen by SHANEL with probe detection (test code = 71670-9) negative negative [facility] ProgramReagin Ab [Presence] in Serum by RPR 2020-12-21 00:00:00* Test Item Value Reference Range Interpretation Comme nts Reagin Ab [Presence] in Seru m by RPR (test code = 79145-2) non reactive non reactive [facility] ProgramHIV 1+2 Ab+HIV1 p24 Ag [Presence] in Serum or Plasma by Feykhclnqeq7443-26-42 00:00:00* Test Item Value Reference Range Interpretation Comme nts HIV 1+2 Ab+HIV1 p24 Ag [Presence] in Serum or Plasma by Immunoassay (test code = 15740-7) non reactive non reactive [facility] ProgramHepatitis B virus surface Ag [Presence] in Serum or Plasma by Fikdxazkjfm2255-48-27 00:00:00* Test Item Value Reference Range Interpretation Comme nts Hepatitis B virus surface Ag [Presence] in Serum or Plasma by Immunoassay (test code = 5196-1) negative negative [facility] ProgramCytology report of Cervical or vaginal smear or scraping Cyto stain.thin usqj0264-34-91 00:00:00* Test Item Value Reference Range Interpretation Comme nts age gdln acog testing (test code = age gdln acog testing) 30-65 Cytology report of Cervical or vaginal smear or scraping Cyto stain (test code = 19302-7) comment Statement of adequacy [Interpretation] of Cervical or vaginal smear or scraping by Cyto stain (test code = 51977-4) comment Diagnosis ICD code [Identifi er] (test code = 11249-4) comment [employer] who read Cyto sta in of Cervical or vaginal smear or scraping (test code = 24391-4) comment QC reviewed by: (test code = QC reviewed by:) comment Microscopic observation [Uriel ntifier] in Unspecified specimen by Other stain (test code = 28907-1) . note: (test code = note:) comment Cytology report of Cervical or vaginal smear or scraping Cyto stain.thin prep (test code = 06807-4) comment Human papilloma virus 16+18+31+33+35+39+45+51+52+56+58+59+ 66+68 DNA [Presence] in Cervix by Probe with signal amplification (test code = 85196-5) negative negative Chlamydia trachomatis rRNA [Presence] in Cervix by SHANEL with probe detection (test code = 53282-1) negative negative Neisseria gonorrhoeae rRNA [Presence] in Cervix by SHANEL with probe detection (test code = 29063-1) negative negative Trichomonas vaginalis rRNA [Presence] in Unspecified specimen by SHANEL with probe detection (test code = 78722-2) negative negative [facility] ProgramReagin Ab [Presence] in Serum by RPR 2019-10-20 00:00:00* Test Item Value Reference Range Interpretation Comme nts Reagin Ab [Presence] in Seru m by RPR (test code = 63340-5) non reactive non reactive [facility] ProgramHIV 1+2 Ab+HIV1 p24 Ag [Presence] in Serum or Plasma by Tfcmcuzdtuz6924-17-32 00:00:00* Test Item Value Reference Range Interpretation Comme nts HIV 1+2 Ab+HIV1 p24 Ag [Presence] in Serum or Plasma by Immunoassay (test code = 29885-8) non reactive non reactive [facility] ProgramHepatitis B virus surface Ag [Presence] in Serum or Plasma by Xdpqprinyww2556-82-21 00:00:00* Test Item Value Reference Range Interpretation Comme nts Hepatitis B virus surface Ag [Presence] in Serum or Plasma by Immunoassay (test code = 5196-1) negative negative [facility] Notes Date/Time Note Provider Source 2023-10-14 18:22:43 kWW4BETuVrXd//waDVGr 34wF+7KaJmhJh oKc9dtBcpfN3ZohVzqSslYGynBP9/Sn20 22-10-15T18:22:43 Pt given printed and verbal discharge instructions regarding vomiting, hyperemesis gravidarum, and threatened miscarriage, encouraged hydration.Prescriptions provided.Pt verbalized understanding of instructions, pt awake alert oriented, resp reg unlabored, skin w/d, color appropriate for race, moves all ext well, pt encouraged to follow up with OBGYN.Advised to seek medical attention for new/prolonged/worsening of symptoms.Symptoms addressed.No adverse reaction to meds given in ER noted upon discharge.PIV d'cd, dressing to site, catheter intact.Pt leaving amb with steady gait, in no apparent distress. 72345-7Pzzdnjbgv department KguxYM0550-65-68G20:25:53Emergen y department NoteTXT1.2.840.204885.1.13.104.2. 7.2.656793|[id number] for patient dhal41067-0WhmjHEEMIRJKZPHKwreoiv ed C-CDA narrative text[address] QakdYpbgztqorPrhsixmckLVIO6703750 928TNYLPYYVQYMHRUKWRSWMYB8914-16- 16T18:25:531.2.840.727459.1.72.3. 15|1.2.840.910515.1.13.104.2.7.2. [id number] [facility] 2023-10-14 17:41:21 lk9BGOq5S3rgyf8VnpHM yx1joG+JIf/ei i/mynnHTqXIdFm5L0DK51gGjMdIuIVN24 22-10-15T17:41:21 Patient given water for po challenge. 96278-9Eomzbjxas department GxenWG3314-78-00D14:41:50[facility] NoteTXT1.2.840.499701.1.13.104.2. 7.2.133901|[id number] for patient xshw52873-2ZvwdCYOKWPWRCSYMuprmbe ed C-CDA narrative [id number] M Herrera [id number] 604OGAVCEQZDSKLAIHNYYZSXF6827-04- 16T17:41:501.2.840.152249.1.72.3. 15|1.2.840.425332.1.13.104.2.7.2. [id number] Ibis Duckworth RN [facility] 2023-10-14 16:08:08 WidueodSmTmSYhvPs21i 40okLdKnlcVpe 2a3mBDhC0Z96KO9xgt56qgTHXy9pSgf85 22-10-156:08:08 Called to room no response. 69114-6Hbqfrgcau department WnnnLN9596-65-71L81:08:15[facility] NoteTXT1.2.840.284909.1.13.104.2. 7.2.444693|[id number] for patient wsut35995-5KfnrYXXMYHPOVLNBbiebmk ed C-CDA narrative [id number] Smith RN[id number] 461LTOXVBRBHKBFHAISKWUPJY0005-88- 16T16:08:151.2.840.546792.1.72.3. 15|1.2.840.171526.1.13.104.2.7.2. [id number] Bashir Smith RN [facility] 2023-10-14 13:09:17 2YGMmEQBn5k/NJzRCklD 0dbC+ARIvB1sB CoLnQX+jU33o6jKd1I6T+LcxdMKcuQD54 22-10-153:09:17 CC: patient presents to the ER with complaints of vomiting during . Patient states she is 7 weeks gestation, states vomiting began two weeks ago.PMHx: see historyAwake, alert, oriented, resp reg unlabored, skin warm and dry, color appropriate for race, moves all ext without difficulty, amb without assistance.Appears in no distress. 94859-2Qwizjdcqn department Triage jcweMX2873-45-38P12:10:05[facility] department Triage noteTXT1.2.840.782411.1.13.104.2. 7.2.884535|[id number] for patient dtjv36662-0Fhzxorwle department NoteLNNARRATIVEFormatted C-CDA narrative [id number] M Rivera RN[address] CpagXavxelevtKutduuapwVNWA3892499 252XVEWURBOWTFTMZXQUWAMDO8132-13- 16T13:10:051.2.840.412581.1.72.3. 15|1.2.840.323157.1.13.104.2.7.2. [id number] Darby Martin RN [facility]"
[2023-10-17] MEDS ORDERED: ONDANSETRON 4 MG/2 ML VIAL ONE (09:58)
[2023-10-17] MEDS ORDERED: NA CHLORIDE 0.9% 1,000 ML ONE (09:58)
[2023-10-17 10:22] LABS: Absolute Basophils 0.1 K/uL (0-0.5); Absolute Lymphocytes (CBC) 1.4 K/uL (0.7-4.9); Absolute Monocytes 0.7 K/uL (0.1-1.3); Absolute Neutrophil 10.8 K/uL (1.8-8.0); Basophils % 0.5 % (0-1.3); Eosinophils % 0.1 % (0-4.4); Hematocrit 40.8 % (36.0-45.0); Lymphocytes % 10.5 % (15.3-44.8); MCH 30.5 pg (27.0-35.0); MCHC 34.3 g/dL (32.0-36.0); MCV 88.9 fL (80-100); MPV 8.8 fL (7.6-11.3); Monocytes % 5.1 % (3.3-12.3); Neutrophils % 83.8 % (41.7-73.7); Nucleated Red Blood Cells % 0.1 % (0-0); Platelets 243 thou/uL (152-406); RBC Red Blood Cell Count 4.58 M/uL (3.86-4.86)
[2023-10-17 10:42] LABS: ALT/SGPT 23 U/L (13-56); AST/SGOT 15 U/L (15-37); Albumin 3.6 g/dL (3.4-5.0); Albumin/Globulin Ratio 1.1 (1.1-1.8); Alkaline Phosphatase 75 U/L (45-117); Anion Gap 8.2 mEq/L (5.0-15.0); BUN Blood Urea Nitrogen 15 mg/dL (7-18); Bicarbonate 25 mEq/L (21-32); Bilirubin Total 0.5 mg/dL (0.2-1.0); Globulin 3.3 g/dL (2.3-3.5); Glomerular Filtration Rate 98 ml/min (=/>90); Glucose Level 110 mg/dL (74-106); Magnesium 2.1 mg/dL (1.6-2.4); Potassium 3.2 mEq/L (3.5-5.1); Protein, Total 6.9 g/dL (6.4-8.2); Sodium Level 138 mEq/L (136-145)
[2023-10-17 10:44] LABS: Troponin High Sensitivity < 3.0 pg/mL (<58.9)
[2023-10-17 11:03] LABS: Blood Morphology Comment NOT SEEN (NOT SEEN); Platelet Estimate ADEQ; White Blood Cell Scan OK (OK)
[2023-10-17 12:09] LABS: Specific Gravity > 1.030 (1.005-1.030); Sqamous Epithelial <5 /HPF (None Seen); Urine Bacteria None Seen /HPF (<20); Urine Bilirubin NEGATIVE (Negative); Urine Blood Negative (Negative); Urine Clarity Extremely Turbid (Clear); Urine Color Yellow (Yellow); Urine Culture Reflex Order NOT NEEDED; Urine Glucose NEGATIVE (Negative); Urine Ketones 3+ (Negative); Urine Micro Reflex YN NO BILL MICROSCOPIC; Urine Mucus 4+ /HPF (None Seen); Urine Nitrite NEGATIVE (Negative); Urine Protein 1+ (Negative); Urine RBC <5 /HPF (None Seen); Urine Urobilinogen Normal (Normal); Urine WBC <5 /HPF (<5); Urine pH 5.5 (5.0-7.0)
--- NOTE | 2023-10-17 12:17 | ER ---
Nurse's Notes [facility] Name: Amber Giles Age: 38 yrs Sex: Female : 1985 Arrival Date: 10/17/2023 Time: 08:41 Bed 12 Private MD: Diagnosis: Mild hyperemesis gravidarum;Hypokalemia Presentation: 10/16 09:13 Chief complaint: Spouse and/or significant other states: N/V x2 WK, 7 WK , SEEN bp AND D/C AT [facility] 2 DAYS AGO. Coronavirus screen: At this time, the client does not indicate any symptoms associated with coronavirus-19. Ebola Screen: No symptoms or risks identified at this time. Initial Sepsis Screen: Does the patient meet any 2 criteria? No. Patient's initial sepsis screen is negative. Does the patient have a suspected source of infection? No. Patient's initial sepsis screen is negative. Risk Assessment: Do you want to hurt yourself or someone else? Patient reports no desire to harm self or others. Onset of symptoms is unknown. 09:13 Method Of Arrival: Wheelchair bp 09:13 Acuity: JOSUÉ 3 bp Triage Assessment: 09:15 General: Appears distressed, uncomfortable, slender, Behavior is cooperative, bp appropriate for age, anxious. Pain: Denies pain. GI: Reports nausea, vomiting. Historical: - Allergies: 09:15 Macrobid; bp 09:15 Sulfa (Sulfonamide Antibiotics); bp - Home Meds: 09:15 Metoprolol Tartrate Oral [Active]; bp - PMHx: 09:15 Migraines; Sinusitis; MITRAL VALVE PROLAPSE; bp - Immunization history:: Adult Immunizations up to date. - Infectious Disease History:: Denies. - Social history:: Smoking status: Patient denies any tobacco usage or history of. - Family history:: not pertinent. Screenin:16 [facility] ED Fall Risk Assessment (Adult) History of falling in the last 3 months, bp including since admission No falls in past 3 months (0 pts). Abuse screen: Denies threats or abuse. Denies injuries from another. Nutritional screening: No deficits noted. Tuberculosis screening: No symptoms or risk factors identified. Assessment: 09:16 General: SEE TRIAGE NOTE. bp 11:28 Reassessment: Patient appears in no apparent distress at this time. Patient is alert, bp oriented x 3, equal unlabored respirations, skin warm/dry/pink. GI: Abdomen is non-distended. Vital Signs: 09:13 BP 99 / 43; Pulse 84; Resp 16; Temp 97.4; Pulse Ox 100% ; Weight 48.08 kg; Height 5 ft. bp 2 in. ; 11:28 BP 93 / 53; Pulse 74; Resp 14; Pulse Ox 100% ; bp 12:42 BP 110 / 61; Pulse 75; Resp 16; Pulse Ox 100% ; bp 09:13 Body Mass Index 19.39 (48.08 kg, 157.48 cm) bp ED Course: 08:43 Patient arrived in ED. rg4 08:57 Kelvin Whalen MD is Attending Physician. rt 09:13 Fuad Hartley, DEISY is Primary Nurse. bp 09:14 Triage completed. bp 09:15 Arm band placed on. bp 09:16 Patient has correct armband on for positive identification. bp 09:45 Inserted saline lock: 22 gauge in right forearm, using aseptic technique. Blood bp collected. 10:17 Troponin High Sensitivity Sent. bp 10:17 Magnesium Sent. bp 10:17 CMP Sent. bp 10:17 CBC with Diff Sent. bp 11:58 UAM Sent. bp 12:42 Provided Education on: N/A. bp 12:42 No provider procedures requiring assistance completed. IV discontinued, intact, bp bleeding controlled, No redness/swelling at site. Pressure dressing applied. Administered Medications: 09:45 Drug: NS 0.9% IV 1000 ml IV at 1 bolus Per protocol; 1000 mL bolus Route: IV; Rate: 1 bp bolus; Site: right antecubital; 12:43 Follow up: IV Status: Completed infusion; IV Intake: 1000ml bp 09:45 Drug: Ondansetron IVP 4 mg IVP once; over 2 minutes Route: IVP; Site: right forearm; bp 12:43 Follow up: Response: No adverse reaction bp Medication: 09:16 VIS not applicable for this client. bp Intake: 12:43 IV: 1000ml; Total: 1000ml. bp Outcome: 12:17 Discharge ordered by MD. rt 12:42 Discharged to home via wheelchair, with family, bp 12:42 Condition: stable 12:42 Discharge instructions given to patient, family, Instructed on discharge instructions, follow up and referral plans. Demonstrated understanding of instructions, follow-up care, 12:43 Patient left the ED. bp Signatures: Araceli Roth rg4 Fuad Hartley, RN RN bp Kelvin Whalen MD MD rt
--- NOTE | 2023-10-17 12:18 | EDPHYS ---
Physician Documentation [facility] Name: Amber Giles Age: 38 yrs Sex: Female : 1985 Arrival Date: 10/17/2023 Time: 08:41 Bed 12 Private MD: ED Physician Kelvin Whalen HPI: 10/16 09:21 This 38 yrs old Female presents to ER via Wheelchair with complaints of Nausea/Vomiting.rt 09:21 Patient presents to the ED with nausea, vomiting. She is reportedly 7 weeks . rt Says [facility] ER yesterday, was prescribed diclegis, she states this required preauthorization, was unable to take the medicine due to that reason. Reports a mild chest pain. Denies other acute complaints at this time, symptoms are moderate in severity, no other aggravating or alleviating factors. Historical: - Allergies: 09:15 Macrobid; bp 09:15 Sulfa (Sulfonamide Antibiotics); bp - Home Meds: 09:15 Metoprolol Tartrate Oral [Active]; bp - PMHx: 09:15 Migraines; Sinusitis; MITRAL VALVE PROLAPSE; bp - Immunization history:: Adult Immunizations up to date. - Infectious Disease History:: Denies. - Social history:: Smoking status: Patient denies any tobacco usage or history of. - Family history:: not pertinent. ROS: 09:21 Constitutional: Negative for fever, chills, and weight loss, Respiratory: Negative for rt shortness of breath, cough, wheezing, and pleuritic chest pain, MS/Extremity: Negative for injury and deformity, Skin: Negative for injury, rash, and discoloration, Neuro: Negative for headache, weakness, numbness, tingling, and seizure, Psych: Negative for depression, anxiety, suicide ideation, homicidal ideation, and hallucinations, 09:21 Cardiovascular: Positive for chest pain, Negative for edema, 09:21 Abdomen/GI: Positive for nausea and vomiting, Exam: 09:21 Constitutional: This is a well developed, well nourished patient who is awake, alert, rt and in no acute distress. Head/Face: Normocephalic, atraumatic. Cardiovascular: Regular rate and rhythm with a normal S1 and S2. No gallops, murmurs, or rubs. Normal PMI, no JVD. No pulse deficits. Respiratory: Lungs have equal breath sounds bilaterally, clear to auscultation and percussion. No rales, rhonchi or wheezes noted. No increased work of breathing, no retractions or nasal flaring. Abdomen/GI: Soft, non-tender, with normal bowel sounds. No distension or tympany. No guarding or rebound. No evidence of tenderness throughout. Skin: Warm, dry with normal turgor. Normal color with no rashes, no lesions, and no evidence of cellulitis. Neuro: Awake and alert, GCS 15, oriented to person, place, time, and situation. Cranial nerves II-XII grossly intact. Motor strength 5/5 in all extremities. Sensory grossly intact. Cerebellar exam normal. Normal gait. 09:21 ENT: Dry mucous membranes. 10:27 ECG was reviewed by the Attending Physician. rt Vital Signs: 09:13 BP 99 / 43; Pulse 84; Resp 16; Temp 97.4; Pulse Ox 100% ; Weight 48.08 kg; Height 5 ft. bp 2 in. ; 11:28 BP 93 / 53; Pulse 74; Resp 14; Pulse Ox 100% ; bp 12:42 BP 110 / 61; Pulse 75; Resp 16; Pulse Ox 100% ; bp 09:13 Body Mass Index 19.39 (48.08 kg, 157.48 cm) bp MDM: 09:16 Patient medically screened. rt 13:19 Differential diagnosis: Hyperemesis, UTI, electrolyte disturbance. Data reviewed: vital rt signs, nurses notes, lab test result(s), EKG, radiologic studies. I considered the following discharge prescriptions or medication management in the emergency department Medications were administered in the Emergency Department. See MAR. Counseling: I had a detailed discussion with the patient and/or guardian regarding the historical points, exam findings, and any diagnostic results supporting the discharge/admit diagnosis, lab results, the need for outpatient follow up, to return to the emergency department if symptoms worsen or persist or if there are any questions or concerns that arise at home. Response to treatment: the patient's symptoms have markedly improved after treatment. 10/16 09: Order name: CBC with Diff; Complete Time: 11:15 rt 10/16 08:21 Order name: CMP; Complete Time: 11:15 rt 10/16 08:21 Order name: Magnesium; Complete Time: 11:15 rt 04/19 09:21 Order name: Troponin High Sensitivity; Complete Time: 11:15 rt 10/16 09:23 Order name: UAM; Complete Time: 12:14 rt 10/16 10:24 Order name: CBC Smear Scan; Complete Time: 11:15 EDMS 10/16 09:21 Order name: EKG; Complete Time: 09:22 rt 10/16 09:21 Order name: EKG - Nurse/Tech; Complete Time: 10:17 rt EC:27 Rate is 61 beats/min. Rhythm is regular, Normal Sinus Rhythm with No ectopy. QRS [place] rt is Normal. GA interval is normal. QRS interval is normal. QT interval is normal. No Q waves. T waves are Normal. No ST changes noted. Interpreted by me. Administered Medications: 09:45 Drug: NS 0.9% IV 1000 ml IV at 1 bolus Per protocol; 1000 mL bolus Route: IV; Rate: 1 bp bolus; Site: right antecubital; 12:43 Follow up: IV Status: Completed infusion; IV Intake: 1000ml bp 09:45 Drug: Ondansetron IVP 4 mg IVP once; over 2 minutes Route: IVP; Site: right forearm; bp 12:43 Follow up: Response: No adverse reaction bp Disposition Summary: 10/17/23 12:17 Discharge Ordered Notes: Location: Home rt Problem: an ongoing problem rt Symptoms: have improved rt Condition: Stable rt Diagnosis - Mild hyperemesis gravidarum rt - Hypokalemia rt Followup: rt - With: Private Physician - When: 2 - 3 days - Reason: Discharge Instructions: - Discharge Summary Sheet rt - Potassium Content of Foods rt - Morning Sickness rt Forms: - Medication Reconciliation Form rt - Thank You Letter rt - Antibiotic Education rt - Prescription Opioid Use rt - Patient Portal Instructions rt - Leadership Thank You Letter rt Signatures: Dispatcher [employer] Fuad Casarez, DEISY RN bp Kelvin Whalen MD MD rt Corrections: (The following items were deleted from the chart) 09: 09:22 CBC+H.LAB.BRZ ordered. EDMS EDMS 09:22 09:22 COMPREHENSIVE METABOLIC PANEL+C.LAB.BRZ ordered. EDMS EDMS 09:22 09:22 MAGNESIUM+C.LAB.BRZ ordered. EDMS EDMS 09:22 09:22 Troponin High Sensitivity+C.LAB.BRZ ordered. EDMS EDMS
[2023-10-17 13:19] VITALS: BP 110/61; TEMP 97.4; O2SAT 100
== END 2023-10-17 12:43 | disposition home or self-care (01) ==
LOC: ER 08:41
DX: O21.0 Mild hyperemesis gravidarum (principal); O99.281 Endocrine, nutritional and metabolic diseases complicating pregnancy, first trimester; E87.6 Hypokalemia; Z3A.01 Less than 8 weeks gestation of pregnancy; Z88.1 Allergy status to other antibiotic agents; Z88.2 Allergy status to sulfonamides
CPT/HCPCS: 96361; 85025; 81001; 36415; 83735; 84484; 80053; 96374; 99284; J2405; J7030; 93005

== ENCOUNTER 2023-10-19 07:02 | Emergency (ER) | payer OTHER ==
--- OUTSIDE RECORDS SUMMARY | 2023-10-19 07:04 | XMS REPORT | Continuity of Care Document ---
Author Name Unknown Address [address] [facility] [address]. [address] [place] [address] [facility] thconnect Address [address] [facility]. 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 Role Phone JONAH DIANE Primary Care Physician Unavailab JONAH Patel Attending Clinician Unavailable DR LITTLE HAINES Attending Clinician Unavailable [phone] Attending Clinician Unavailable DWAYNE HENDRICKSON Attending Clinician Unavailable Dwayne Hendrickson MD Attending Clinician ROWAN Attending Clinician Unavailable DR JONAH DIANE Attending Clinician Unavailab jimmie [phone] Attending Clinician Unavailable JUAN TUCKER Attending Clinician Unavailable Cristofer Attending Clinician Unavailable 0 Attending Clinician Unavailable DR BRENDA ODOM Attending Clinician Unavail able [phone] Attending Clinician Unavailable DR MISAEL WEBBER Attending Clinician Unavailable [phone] Attending Clinician Unavailable Rusty Simon Attending Clinician Doctor Unassigned, [place] Attending Clinician KATRINA Ocasio Attending Clinician Unavailable STEPHY BARLOW Attending Clinician Unavailable ZITA RÍOS Attending Clinician UnaSoraida Maldonado Attending Clinician UnavailINÉS Torre Attending Clinician UnavailDR LITTLE Carr Admitting Clinician Unavailable ROWAN Admitting Clinician Unavailable DR JONAH DIANE Admitting Clinician Unavailab le White_M Admitting Clinician Unavailable 0 Admitting Clinician Unavailable DR BRENDA ODOM Admitting Clinician Unavail able DR MISAEL WEBBER Admitting Clinician Unavailable KATRINA DELUCA Admitting Clinician Unavailable Soraida Pickard Admitting Clinician Unavaila INÉS Loving Admitting Clinician Unavailabl e Payers Payer Name Policy Type Policy Number Effective Date Expirati on Date Source [facility] OP [id number] [facility] [place] STAR [id number] 2023 00:00:00 [place] [id number] [place] [id number] 2021 00:00:00 [place] [facility] [place]MEDICAID) [id number] Problems Condition Name Condition Details Condition Category Status Onset Date Resolution Date Last Treatment Date Treating Clinician Comments Source Diverticul osis of colon Diverticul osis of Colon Problem Active 09-14 00:00: [address] [facility] contractio ns contractio ns Disease Active 03-16 00:00: 00 [facility] Mitral valve prolapse Mitral valve prolapse Disease Active 03-16 00:00: 00 [facility] Asthma Asthma Disease Active 03-16 00:00: 00 [facility] Allergies, Adverse Reactions, Alerts Allergy Name Allergy Type Status Severity Reaction(s) Onset Date Inactive Date Treating Clinician Comments Source NITROFUR ANTOIN MONOHYD/ M-CRYST DRUG Active Unknown-Cmnt 03-16 00:00: 00 [facility] Nitrofur antoin Monohyd/ M-Cryst Propensi ty to adverse reaction s Active Unknown - See comments 03-16 00:00: 00 [facility] Macrobid Allergy to substanc e Active [facility] Social History Social Habit Start Date Stop Date Quantity Comments [facility] 1985 [facility]00 1985 00:00:[address] [facility] Smoking Status Start Date Stop Date Source Former Smoker [place] [facility] Light Tobacco Smoker [facility] Tobacco smoking consumption unknown [facility] Medications Ordered Medication Name Filled Medication Name Start Date Stop Date Current Medication? Ordering Clinician Indication Dosage Frequency Signature (SIG) Comments Components Source metoclopram uriel HCl (REGLAN) injection 10 mg 10-13 22:15: 00 10-13 22:22 :00 No 10mg 10 mg, Slow IV Push, ONCE, 1 dose, On Fri10/14/23 at 1715, [facility] NaCl 0.9% (NS) bolus infusion 1,000 mL 10-13 21:00: 00 10-13 23:20 :00 No 1000mL at 999 mL/hr, 1,000 mL, IV Infusion, ONCE, 1 dose, On Fri10/14/23 at 1600, [facility] doxylamine- pyridoxine, vit B6, (DICLEGIS) 10-10 mg per tablet 10-13 00:00: 00 Yes [id number] 1{tbl} Take 1 tablet by mouth in the morning and 1 tablet in the evening. [facility] No known medications No Un r[facility] No known medications No Un rach[facility] No known medications No Un rachid [facility] metoprolol succinate ER 25 mg tablet,exte nded [...] & ONE-HALF) TABLETS BY MOUTH ONCE DAILY [facility] Diflucan 150 mg tablet Take 1 tablet every other day by oral route for 4 days. Diflucan 150 mg tablet Take 1 tablet every other day by oral route for 4 days. No 1 Q2D Diflucan 150 mg tablet Take 1 tablet every other day by oral route for 4 days. [facility] metoprolol tartrate 25 mg tablet TAKE 1 TABLET BY MOUTH TWICE DAILY metoprolol tartrate 25 mg tablet TAKE 1 TABLET BY MOUTH TWICE DAILY No metoprolol tartrate 25 mg tablet TAKE 1 TABLET BY MOUTH TWICE DAILY [facility] acetaminoph en 300 mg-codeine 30 mg tablet TAKE 1 TABLET BY MOUTH EVERY 4 TO 6 HOURS NEEDED acetaminoph en 300 mg-codeine 30 mg tablet TAKE 1 TABLET BY MOUTH EVERY 4 TO 6 HOURS NEEDED No acetaminop hen 300 mg-codeine 30 mg tablet TAKE 1 TABLET BY MOUTH EVERY 4 TO 6 HOURS NEEDED [facility] amoxicillin 500 mg capsule amoxicillin 500 mg capsule No amoxicilli n 500 mg capsule [facility] azithromyci n 500 mg tablet azithromyci n 500 mg tablet No azithromyc in 500 mg tablet [facility] ciprofloxac in 0.3 % eye drops INSTILL 5 DROPS INTO RIGHT EAR TWICE DAILY FOR 7 DAYS ciprofloxac in 0.3 % eye drops INSTILL 5 DROPS INTO RIGHT EAR TWICE DAILY FOR 7 DAYS No ciprofloxa maddie 0.3 % eye drops INSTILL 5 DROPS INTO RIGHT EAR TWICE DAILY FOR 7 DAYS [facility] ciprofloxac in 500 mg tablet ciprofloxac in 500 mg tablet No ciprofloxa maddie 500 mg tablet [facility] CitraNatal Assure 35 mg iron-1 mg-50 mg-300 mg oral pack CitraNatal Assure 35 mg iron-1 mg-50 mg-300 mg oral pack No CitraNatal Assure 35 mg iron-1 mg-50 mg-300 mg oral pack [facility] Citranatal B-Calm (Fe Gluc) 20 mg iron-1 mg-25 mg/25 mg tablets Citranatal B-Calm (Fe Gluc) 20 mg iron-1 mg-25 mg/25 mg tablets No Citranatal B-Calm (Fe Gluc) 20 mg iron-1 mg-25 mg/25 mg tablets [facility] clarithromy maddie 500 mg tablet clarithromy maddie 500 mg tablet No clarithrom ycin 500 mg tablet [facility] dicyclomine 10 mg capsule TAKE 1 CAPSULE BY MOUTH 4 TIMES DAILY BEFORE MEAL(S) AND NIGHTLY dicyclomine 10 mg capsule TAKE 1 CAPSULE BY MOUTH 4 TIMES DAILY BEFORE MEAL(S) AND NIGHTLY No dicyclomin e 10 mg capsule TAKE 1 CAPSULE BY MOUTH 4 TIMES DAILY BEFORE MEAL(S) AND NIGHTLY [facility] dicyclomine 20 mg tablet TAKE 1 TABLET BY MOUTH EVERY 8 HOURS NEEDED dicyclomine 20 mg tablet TAKE 1 TABLET BY MOUTH EVERY 8 HOURS NEEDED No dicyclomin e 20 mg tablet TAKE 1 TABLET BY MOUTH EVERY 8 HOURS NEEDED [facility] fluconazole 150 mg tablet Take 1 tablet every 72 hours by oral route. fluconazole 150 mg tablet Take 1 tablet every 72 hours by oral route. No 1 fluconazol e 150 mg tablet Take 1 tablet every 72 hours by oral route. [facility] hydrocodone 10 mg-acetamin ophen 325 mg tablet TAKE 1 TABLET BY MOUTH EVERY 6 HOURS NEEDED FOR MODERATE PAIN hydrocodone 10 mg-acetamin ophen 325 mg tablet TAKE 1 TABLET BY MOUTH EVERY 6 HOURS NEEDED FOR MODERATE PAIN No hydrocodon e 10 mg-acetami nophen 325 mg tablet TAKE 1 TABLET BY MOUTH EVERY 6 HOURS NEEDED FOR MODERATE PAIN [facility] metronidazo le 500 mg tablet metronidazo le 500 mg tablet No metronidaz ole 500 mg tablet [facility] Nexium 40 mg capsule,del ayed release Nexium 40 mg capsule,del ayed release No Nexium 40 mg capsule,de layed release [facility] nifedipine ER 90 mg tablet,exte nded release 24 hr nifedipine ER 90 mg tablet,exte nded release 24 hr No nifedipine ER 90 mg tablet,ext ended release 24 hr [facility] nystatin 100,000 unit/gram topical cream APPLY TO THE AFFECTED AREA(S) BY TOPICAL ROUTE 2 TIMES PER DAY nystatin 100,000 unit/gram topical cream APPLY TO THE AFFECTED AREA(S) BY TOPICAL ROUTE 2 TIMES PER DAY No nystatin 100,000 unit/gram topical cream APPLY TO THE AFFECTED AREA(S) BY TOPICAL ROUTE 2 TIMES PER DAY [facility] omeprazole 40 mg capsule,del ayed release TAKE 1 CAPSULE BY MOUTH ONCE DAILY omeprazole 40 mg capsule,del ayed release TAKE 1 CAPSULE BY MOUTH ONCE DAILY No omeprazole 40 mg capsule,de layed release TAKE 1 CAPSULE BY MOUTH ONCE DAILY [facility] ondansetron HCl 4 mg tablet TAKE 1 TABLET BY MOUTH EVERY 12 HOURS NEEDED ondansetron HCl 4 mg tablet TAKE 1 TABLET BY MOUTH EVERY 12 HOURS NEEDED No ondansetro n HCl 4 mg tablet TAKE 1 TABLET BY MOUTH EVERY 12 HOURS NEEDED [facility] prednisone 5 mg tablet prednisone 5 mg tablet No prednisone 5 mg tablet [facility] Select-OB (folic acid) 29 mg iron-1 mg chewable tablet Select-OB (folic acid) 29 mg iron-1 mg chewable tablet No Select-OB (folic acid) 29 mg iron-1 mg chewable tablet [facility] sulfamethox azole 800 mg-trimetho prim 160 mg tablet TAKE 1 TABLET BY MOUTH TWICE DAILY sulfamethox azole 800 mg-trimetho prim 160 mg tablet TAKE 1 TABLET BY MOUTH TWICE DAILY No sulfametho xazole 800 mg-trimeth oprim 160 mg tablet TAKE 1 TABLET BY MOUTH TWICE DAILY [facility] Immunizations Ordered Immunization Name Filled Immunization Name Date Status Comments Source Td (adult), adsorbed - ML Td (adult), adsorbed - ML Unknown Completed [place] [facility] Tdap - ML Tdap - ML Unknown Completed [place] [facility] influenza, seasonal, injectable, preservative free - ML influenza, seasonal, injectable, preservative free - ML Unknown Completed [place] [facility] Tdap - ML Tdap - ML Unknown Completed [place] [facility] Hep B, adult - ML Hep B, adult - ML Unknown Completed [place] [facility] MMR - ML MMR - ML Unknown Completed [place] [facility] HPV, quadrivalent - ML HPV, quadrivalent - ML Unknown Completed [place] [facility] HPV, quadrivalent - ML HPV, quadrivalent - ML Unknown Completed [place] [facility] Tdap - ML Tdap - ML Unknown Completed [place] [facility] Hep B, adolescent or pediatric - ML Hep B, adolescent or pediatric - ML Unknown Completed [place] [facility] Hep B, adolescent or pediatric - ML Hep B, adolescent or pediatric - ML Unknown Completed [place] [facility] Vital Signs Vital Name Observation Time Observation Value Comments S ource Systolic blood pressure 2023-10-14 23:21:00 109 mm[Hg] [facility] Diastolic blood pressure 2023-10-14 23:21:00 60 mm[Hg] [facility] Heart rate 2023-10-14 23:21:00 73 /min [facility] Respiratory rate 2023-10-14 23:21:00 14 /min [facility] Oxygen saturation in Arterial blood by Pulse oximetry 2023-10-14 23:21:00 100 /min [facility] Body temperature 2023-10-14 18:10:00 37.11 [facility] Body height 2023-10-14 18:10:00 154.9 cm [facility] Body weight 2023-10-14 18:10:00 48.263 kg [facility] BMI 2023-10-14 18:10:00 20.10 kg/m2 [facility] Body Weight 2023-09-02 00:00:00 110 [lb_av] [place] [facility] BP Diastolic 2023-09-02 00:00:00 67 mm[Hg] [place] [facility] Height 2023-09-02 00:00:00 61 [in_i] [place] [facility] BMI (Body Mass Index) 2023-09-02 00:00:00 20.8 kg/m2 [place] [facility] BP Systolic 2023-09-02 00:00:00 101 mm[Hg] [place] theresa [facility] BP Diastolic 2022-07-10 00:00:00 61 mm[Hg] [facility] Height 2022-07-10 00:00:00 61.5 [in_i] [facility] BMI (Body Mass Index) 2022-07-10 00:00:00 22.2 kg/m2 [place] [facility] BP Systolic 2022-07-10 00:00:00 99 mm[Hg] [facility] Body Weight 2022-07-10 00:00:00 119.2 [lb_av] [facility] BP Diastolic 2020-12-20 00:00:00 82 mm[Hg] [place] [facility] Height 2020-12-20 00:00:00 61 [in_i] Laney regalado [facility] BMI (Body Mass Index) 2020-12-20 00:00:00 23.8 kg/m2 [place] [facility] BP Systolic 2020-12-20 00:00:00 115 mm[Hg] Amor cardenas [facility] Body Weight 2020-12-20 00:00:00 126 [lb_av] Lexa lakhanirda [facility] BP Diastolic 2019-10-19 00:00:00 60 mm[Hg] Lexa lakhanirda [facility] Height 2019-10-19 00:00:00 61 [in_i] Laney rickettsa [facility] BMI (Body Mass Index) 2019-10-19 00:00:00 24 kg/m2 [place] [facility] BP Systolic 2019-10-19 00:00:00 98 mm[Hg] Amor cardenas [facility] Body Weight 2019-10-19 00:00:00 126.8 [lb_av] [facility] Procedures Procedure Date / Time Performed Performing Clinician Source US FIRST TRIMESTER LESS THAN 14 WEEKS WITH TRANSVAGINAL 2023-10-14 21:32:16 Dwayne Hendrickson [facility] POCT TEST 2023-10-14 19:15:[address] [facility] COMP. METABOLIC PANEL ([id number]) 2023-10-14 19:12:[address] [facility] TOTAL BETA HCG ASSAY 2023-10-14 19:12:[address] [facility] CBC WITH DIFF 2023-10-14 19:12:00 Dwayne Hendrickson [facility] US, transvaginal 2020-12-20 00:00:00 Amor cardenas [facility] REFERRAL- REQUEST/RESPONSE 2020-09-14 05:01:00 Doctor Unassigned, [place] [facility] AUTHORIZATION FOR RELEASE OF PHI 2020-01-24 05:01:00 Doctor Unassigned, [place] [facility] Plan of Care Planned Activity Planned Date Details Comments Source Diagnostic Test Pending 2023-09-02 00:00:00 test, urine [code = test, urine] [facility] Diagnostic Test Pending 2022-07-10 00:00:00 urinalysis, dipstick [code = urinalysis, dipstick] [facility] Diagnostic Test Pending 2022-07-10 00:00:00 CT + NG + TV, DNA, urine/swab [code = CT + NG + TV, DNA, urine/swab] [facility] Diagnostic Test Pending 2022-07-10 00:00:00 culture, urine [code = culture, urine] [facility] Instructions [facility] Encounters Start Date/Time End Date/Time Encounter Type Admission Type Attending [facility] Facility Care Department Encounter ID Source 2022-10-11 09:00:00 Inpatient JONAH REYES [facility] [id number] [facility] 2022-01-14 13:29:34 Outpatient LITTLE HAINES [id number] [facility] [id number] [facility] 2022-01-08 16:33:56 Outpatient LITTLE HAINES [id number] [facility] [id number] [facility] 2023-10-14 13:12:00 2023-10-14 18:26:00 Emergency X DWAYNE HENDRICKSON [email or web address] ERT [id number] [facility] 2023-10-14 13:12:00 2023-10-14 18:26:00 Emergency Dwayne Hendrickson [facility] [id number] [facility] 2023-09-02 00:00:00 2023-09-02 00:00:00 Outpatient YEN_SOCOI [facility] [id number] [facility] 2023-09-02 00:00:00 2023-09-02 00:00:00 Stephy Barlow, MACHINE TOOL DESIGNER: [address], [place] [address] , Ph. [facility] [id number] [facility] 2023-09-01 00:00:00 2023-09-01 00:00:00 Outpatient YEN_TWYLA [id number] [facility] 2022-10-14 08:58:00 2022-10-14 08:58:00 Outpatient CAROLE ROXI JONAH [facility] [id number] [facility] 2022-10-07 11:39:00 2022-10-07 11:39:00 Outpatient JONAH RIVERA [id number] [facility] [id number] [facility] 2022-07-10 15:09:00 2022-07-10 15:09:00 Outpatient JUAN CASTILLO [facility] [id number] [facility] 2022-07-10 00:00:00 2022-07-10 00:00:00 [facility] [id number] [facility] 2022-07-10 00:00:00 2022-07-10 00:00:00 [facility] [address], [place] [address] , Ph. [phone] [facility] [place] [facility] [id number] [facility] 2022-07-09 00:00:00 2022-07-09 00:00:00 Outpatient White_M [facility] [id number] [facility] 2022-04-03 00:00:00 2022-04-03 00:00:00 Outpatient 0 PRIV PRIV [id number] [facility] 2022-03-06 15:04:00 2022-03-06 15:05:00 Outpatient N ODOM, BRENDA [id number] [facility] [id number] [facility] 2022-01-14 13:30:00 2022-01-14 13:30:00 Outpatient N MISAEL WEBBER [id number] [facility] [id number] [facility] 2022-01-08 16:35:00 2022-01-08 16:35:00 Outpatient N LITTLE HAINES [id number] [facility] [id number] [facility] 2020-12-20 02:23:00 2020-12-20 02:23:00 Outpatient [place] [id number] [facility] 2020-12-20 00:00:00 2020-12-20 00:00:00 Outpatient MARCO ANTONIO [facility]OPE[facility] [id number] [facility] 2020-12-20 00:00:00 2020-12-20 00:00:00 Stephy Barlow, MACHINE TOOL DESIGNER: [address], [place] [address] , Ph. [facility] [id number] [facility] 2020-10-30 00:00:00 2020-10-30 00:00:00 Letter (Out) Rusty Simon [facility] [id number] [facility] 2020-09-14 00:00:00 2020-09-14 00:00:00 Orders Only Doctor Unassigned, [place] [facility] [id number] [facility] 2020-01-24 00:00:00 2020-01-24 00:00:00 Orders Only Doctor Unassigned, [place] [facility] [id number] [facility] 2019-10-30 10:59:00 2019-10-30 10:59:00 Outpatient YEN_MELI [facility] [id number] [facility] 2019-10-19 04:59:00 2019-10-19 04:59:00 Outpatient LISTER_MELI [facility] [id number] [facility] 2019-10-19 00:00:00 2019-10-19 00:00:00 Stephy Barlow, MACHINE TOOL DESIGNER: [address], [place] [address] , Ph. [facility] [place] [facility] PSYCH TECH [id number] [facility] 2019-10-06 10:40:00 2019-10-06 10:40:00 Outpatient Jonah Reyes [facility] [id number] [facility] 2019-09-28 03:15:00 2019-09-28 03:15:00 Outpatient YEN_MELI [facility] [id number] [facility] 2019-07-26 05:32:00 2019-07-26 05:32:00 Outpatient YEN_MELI [facility] [id number] [facility] 2019-06-14 12:02:21 2019-06-14 15:14:00 Emergency X KATRINA DELUCA [facility] [[email or web address] ERT [id number] [facility] 2018-10-01 10:16:00 2018-10-01 10:16:00 Outpatient STEPHY DELEON [facility] [id number] [facility] 2018-09-14 11:52:00 2018-09-14 11:52:00 Outpatient STEPHY DELEON [facility] [id number] [facility] 2017-06-11 09:49:00 2017-06-11 09:49:00 Outpatient ZITA POST [facility] [id number] [facility] 2017-05-29 12:10:00 2017-05-29 12:10:00 Outpatient ZITA POST [facility] [id number] [facility] 2017-05-21 16:48:00 2017-05-21 16:48:00 Outpatient ZITA POST [facility] [id number] [facility] 2016-03-29 12:48:00 2016-03-29 12:48:00 Outpatient STEPHY DELEON [facility] [id number] [facility] 2015-04-19 22:38:00 2015-04-21 08:55:00 Inpatient ER NeerajSoraida [facility] [id number] [facility] 2015-04-12 12:54:00 2015-04-12 18:05:00 Emergency ER Soraida Pickard [facility] [id number] [facility] 2015-03-29 00:24:00 2015-03-29 03:05:00 Emergency ER Soraida Pickard [facility] [id number] [facility] 2015-03-24 14:53:00 2015-03-24 14:53:00 Outpatient STEPHY DELEON [facility] [id number] [facility] 2015-03-15 14:05:00 2015-03-15 21:33:00 Inpatient ER INÉS ALCALA [facility] [id number] [facility] 2014-11-18 14:40:00 2014-11-18 14:40:00 Outpatient Jonah Reyes [facility] [id number] [facility] Results Test Description Test Time Test Comments [...] Left Adnexa:The left [facility] is not visualized[id number][facility]-14 21:20:16* Test Item Value Reference Range Interpretation Comme nts NA (test code = 8396857937) 137 mmol/L 135-145 K (test code = 8708679842) 3.4 mmol/L 3.5-5.0 L CL (test code = 6167985043) 102 mmol/L 98-108 CO2 TOTAL (test code = 9464544348) 25 mmol/L 23-31 AGAP (test code = 5428450030) 10 2-16 BUN (test code = 2544061316) 13 mg/dL 7-23 GLUCOSE (test code = 8657409064) 93 mg/dL 70-110 CREATININE (test code = 2160-0) 0.63 mg/dL 0.50-1.04 TOTAL BILI (test code = 7665578422) 0.6 mg/dL 0.1-1.1 CALCIUM (test code = 8257846797) 9.0 mg/dL 8.6-10.6 T PROTEIN (test code = 1372116573) 6.7 g/dL 6.3-8.2 ALBUMIN (test code = 5048326721) 4.0 g/dL 3.5-5.0 ALK PHOS (test code = 4275581391) 77 U/L 34-122 ALTv (test code = 1742-6) 20 U/L 5-35 AST(SGOT) (test code = 6620320684) 26 U/L 13-40 eGFR (test code = 09202-1) 115.2 mL/min/1.73m2 CKD-EPI eGFR (2020). Assuming creatinine has been stable day-to-day for at least three months, the eGFR indicates Category G1 (>= 90 mL/min/1.73 m2) Lab Interpretation (test code = 81314-1) Abnormal [facility] WITH [id number] 20:21:08* Test Item Value Reference Range Interpretation [...] 34.6 g/dL 31.6-35.1 RDW-SD (test code = 28425-3) 39.1 fL 39.0-49.9 RDW-CV (test code = 788-0) 12.1 % 12.0-15.5 PLT (test code = 777-3) 265 166-358 MPV (test code = 79487-1) 11.4 fL 9.5-12.9 NRBC/100 WBC (test code = 9996702771) 0.0 0.0-10.0 NRBC x10^3 (test code = 1639310666) See_Comment [Automated messa ge] The system which generated this result transmitted reference range: 10*3/?L. The reference range was not used to interpret this result as normal/abnormal. GRAN MAT (NEUT) % (test code = 770-8) 72.4 % IMM GRAN % (test code = 0718737385) 0.30 % LYMPH % (test code = 736-9) 19.4 % MONO % (test code = 5905-5) 7.1 % EOS % (test code = 713-8) 0.1 % BASO % (test code = 706-2) 0.7 % GRAN MAT x10^3(ANC) (test code = 9899869725) 7.77 10*3/uL 1.88-7.09 H IMM GRAN x10^3 (test code = 8671933933) 0.03 10*3/uL 0.00-0.06 LYMPH x10^3 (test code = 731-0) 2.08 10*3/uL 1.32-3.29 MONO x10^3 (test code = 742-7) 0.76 10*3/uL 0.33-0.92 EOS x10^3 (test code = 711-2) 0.03-0.39 L BASO x10^3 (test code = 704-7) 0.07 10*3/uL 0.01-0.07 Lab Interpretation (test code = 27095-0) [facility]normal [facility] [id number] 19:15:00* Test Item Value Reference Range Interpretation Comme nts POCT PREG (test code = 1605) Positive On board controls acceptable with C Line (test code = 3574) Yes POCT PREG LOT # (test code = 3575) [id number] POCT PREG TEST DATE ( test code = 3576) 08/06/2024 Lab Interpretation (test cod e = 67795-6) Normal [facility], bwjjt3638-66-12 10:24:00* Test Item Value Reference Range Interpretation Comme nts HCG (test code = HCG) negative [facility] Program[facility],urine pres id feqte7146-06-32 15:39:00* Test Item Value Reference Range Interpretation Comme nts culture,urine (test code = culture,urine) specimen has been received in lab and IS in progress. [facility] - Cofrd6669-96-13 11:55:16* Test Item Value Reference Range Interpretation Comme nts Leukocytes (test code = Leukocytes) Negative Nitrite (test code = Nitrite) negative Urobilinogen (test code = Urobilinogen) .2 Protein (test code = Protein) Negative pH (test code = pH) 5.5 Blood (test code = Blood) Non-Hemolyzed: Trace Specific [place] (test code = Specific [place]) 1.015 Ketone (test code = Ketone) Negative Bilirubin (test code = Bilirubin) Negative Glucose (test code = Glucose) Negative Appearance (test code = Appearance) Clear Color (test code = Color) Yellow [facility] Urine by Kydogjw8041-92-71 00:00:00* Test Item Value Reference Range Interpretation Comme nts Bacteria identified in Urine by Culture (test code = 630-4) no growth [facility] macro (dipstick) panel - Tdvmz4153-26-93 09:11:00* Test Item Value Reference Range Interpretation Comme nts Leukocytes (test code = Leukocytes) neg Nitrite (test code = Nitrite) neg Urobilinogen (test code = Urobilinogen) 0.2 Protein (test code = Protein) neg pH (test code = pH) 6.0 Blood (test code = Blood) small Specific [place] (test code = Specific [place]) 1.030 Ketone (test code = Ketone) pos Bilirubin (test code = Bilirubin) neg Glucose (test code = Glucose) neg [facility] CenterCytology report of Cervical or vaginal smear or scraping Cyto stain.thin jxuw5311-90-76 00:00:00* Test Item Value Reference Range Interpretation Comme nts age gdln acog testing (test code = age gdln acog testing) 30-65 Cytology report of Cervical or vaginal smear or scraping Cyto stain (test code = 29486-1) comment Statement of adequacy [Interpretation] of Cervical or vaginal smear or scraping by Cyto stain (test code = 08265-3) comment Customer Support Assistant who read Cyto sta in of Cervical or vaginal smear or scraping (test code = 94590-5) comment QC reviewed by: (test code = QC reviewed by:) comment Microscopic observation [Uriel ntifier] in Unspecified specimen by Other stain (test code = 33782-2) . note: (test code = note:) comment Cytology report of Cervical or vaginal smear or scraping Cyto stain.thin prep (test code = 14404-1) comment Human papilloma virus 16+18+31+33+35+39+45+51+52+56+58+59+ 66+68 DNA [Presence] in Cervix by Probe with signal amplification (test code = 07290-8) negative negative Chlamydia trachomatis rRNA [Presence] in Cervix by SHANEL with probe detection (test code = 90686-9) negative negative Neisseria gonorrhoeae rRNA [Presence] in Cervix by SHANEL with probe detection (test code = 26240-2) negative negative Trichomonas vaginalis rRNA [Presence] in Unspecified specimen by SHANEL with probe detection (test code = 70393-2) negative negative [facility] ProgramReagin Ab [Presence] in Serum by RPR 2020-12-21 00:00:00* Test Item Value Reference Range Interpretation Comme nts Reagin Ab [Presence] in Seru m by RPR (test code = 46053-8) non reactive non reactive [facility] ProgramHIV 1+2 Ab+HIV1 p24 Ag [Presence] in Serum or Plasma by Suiqlaggkbj1196-09-56 00:00:00* Test Item Value Reference Range Interpretation Comme nts HIV 1+2 Ab+HIV1 p24 Ag [Presence] in Serum or Plasma by Immunoassay (test code = 37031-3) non reactive non reactive [facility] [facility] ProgramHepatitis B virus surface Ag [Presence] in Serum or Plasma by Qiisxxwdtbr9463-41-22 00:00:00* Test Item Value Reference Range Interpretation Comme nts Hepatitis B virus surface Ag [Presence] in Serum or Plasma by Immunoassay (test code = 5196-1) negative negative [place] [facility] ProgramCytology report of Cervical or vaginal smear or scraping Cyto stain.thin lnsd5322-98-97 00:00:00* Test Item Value Reference Range Interpretation Comme nts age gdln acog testing (test code = age gdln acog testing) 30-65 Cytology report of Cervical or vaginal smear or scraping Cyto stain (test code = 25456-7) comment Statement of adequacy [Interpretation] of Cervical or vaginal smear or scraping by Cyto stain (test code = 05001-1) comment Diagnosis ICD code [Identifi er] (test code = 36906-0) comment Customer Support Assistant who read Cyto sta in of Cervical or vaginal smear or scraping (test code = 55311-5) comment QC reviewed by: (test code = QC reviewed by:) comment Microscopic observation [Uriel ntifier] in Unspecified specimen by Other stain (test code = 78037-7) . note: (test code = note:) comment Cytology report of Cervical or vaginal smear or scraping Cyto stain.thin prep (test code = 97661-5) comment Human papilloma virus 16+18+31+33+35+39+45+51+52+56+58+59+ 66+68 DNA [Presence] in Cervix by Probe with signal amplification (test code = 58150-4) negative negative Chlamydia trachomatis rRNA [Presence] in Cervix by SHANEL with probe detection (test code = 73663-3) negative negative Neisseria gonorrhoeae rRNA [Presence] in Cervix by SHANEL with probe detection (test code = 74033-5) negative negative Trichomonas vaginalis rRNA [Presence] in Unspecified specimen by SHANEL with probe detection (test code = 72831-3) negative negative [place] [facility] ProgramReagin Ab [Presence] in Serum by RPR 2019-10-20 00:00:00* Test Item Value Reference Range Interpretation Comme nts Reagin Ab [Presence] in Seru m by RPR (test code = 37776-5) non reactive non reactive [facility] ProgramHIV [facility]+2 Ab+HIV1 p24 Ag [Presence] in Serum or Plasma by Fvyepznddxw3672-45-46 00:00:00* Test Item Value Reference Range Interpretation Comme nts HIV 1+2 Ab+HIV1 p24 Ag [Presence] in Serum or Plasma by Immunoassay (test code = 15993-5) non reactive non reactive [place] [facility] ProgramHepatitis B virus surface Ag [Presence] in Serum or Plasma by Ckykosycgia7666-21-72 00:00:00* Test Item Value Reference Range Interpretation Comme nts Hepatitis B virus surface Ag [Presence] in Serum or Plasma by Immunoassay (test code = 5196-1) negative negative [facility] Program Notes Date/Time Note Provider Source 2023-10-14 18:22:43 eGB1LXHsQlRe//waDVGr 34wF+7KaJmhJh gKu3zdNdkgC6BonErsAznYEeoQF8/Sn20 22-10-158:22:43 Pt given printed and verbal discharge instructions [...] with steady gait, in no apparent distress. 22479-6Cahvndfou department ZibbPJ4552-73-74T61:25:53Emergen y department NoteTXT1.2.840.887394.1.13.104.2. 7.2.944024|[id number] for patient aikk70166-4TyzwECUKWOAIMKXUitrxuk ed C-CDA narrative text[address] KeoeLpczwkvipKmgpzbohvNJSO8106638 732PSGGANBPWDZBIYWGWNQYYX0269-00- 16T18:25:531.2.840.907316.1.72.3. 15|1.2.840.148866.1.13.104.2.7.2. [id number] [facility] 2023-10-14 17:41:21 nr8IEIz9T1pees2BqpYK yx1joG+JIf/ei i/znazSYsWSqHk1O4RN00gAzZiAvEIJ07 24-04-16T17:41:21 Patient given water for po challenge. 09494-0Nudzgqeem department MvjoMO1044-34-30K24:41:50[facility] NoteTXT1.2.840.964492.1.13.104.2. 7.2.254173|[id number] for patient iqsy98010-1BwoqERKXPTXBZFEBpkfvmj ed C-CDA narrative glbp323152116Vcqyiv M Herrera RN[address]TXTX[address]77 598TAALLXZAUIHMQWGGGKUCAT1050-35- 16T17:41:501.2.840.505893.1.72.3. 15|1.2.840.789593.1.13.104.2.7.2. [id number] Ibis Duckworth RN [facility] 2023-10-14 16:08:08 YlnohahHgHuRKoyVq93g 40okLdKnlcVpe 0x1uMCvV4B10TX3roo86kaAIPy7bSqa20 22-10-156:08:08 Called to room no response. 54799-9Nomzmfjsj department ZunyIU6552-22-62F36:08:15[facility] department NoteTXT1.2.840.665505.1.13.104.2. 7.2.459431|[id number] for patient eopw27469-8CeblHSXDIVVPCBBQsopinx ed C-CDA narrative xnjf551702378Cgnxbiqsuleiman Smith RN[id number] 228IOBOCPUFRLIVCBYYLDVMKG7651-76- 16T16:08:151.2.840.055552.1.72.3. 15|1.2.840.605798.1.13.104.2.7.2. 727879_[id number] Bashir Smith RN [facility] 2023-10-14 13:09:17 1BMLuKDUx5q/NJzRCklD 0dbC+XROfF9dA CoLnQX+qG62e5zWu3R7W+IdnmIDesXK37 22-10-153:09:17 CC: patient presents to the ER with complaints of vomiting during . Patient states she is 7 weeks gestation, states vomiting began two weeks ago.PMHx: see historyAwake, alert, oriented, resp reg unlabored, skin warm and dry, color appropriate for race, moves all ext without difficulty, amb without assistance.Appears in no distress. 74966-8Dvafipdeo department Triage ntklRV9855-09-50F39:10:05[facility] department Triage noteTXT1.2.840.924935.1.13.104.2. 7.2.021796|[id number] for patient ebgw58090-3Sqedlgavq department NoteLNNARRATIVEFormatted C-CDA narrative [id number] M Rivera RN[address] GeedUydgmgusdBeykblbvdHGBZ4128787 968RCMJQMTJKVXVHWGQAXMQGN7156-96- 16T13:10:051.2.840.482631.1.72.3. 15|1.2.840.124842.1.13.104.2.7.2. [id number] Darby Martin RN [facility]"
[2023-10-19] MEDS ORDERED: ONDANSETRON 4 MG/2 ML VIAL ONE (07:34)
[2023-10-19 08:06] LABS: Albumin 3.1 g/dL (3.4-5.0); Albumin/Globulin Ratio 1.1 (1.1-1.8); Anion Gap 9.3 mEq/L (5.0-15.0); Bilirubin Total 0.2 mg/dL (0.2-1.0); Globulin 2.9 g/dL (2.3-3.5); Magnesium 1.9 mg/dL (1.6-2.4); Potassium 3.3 mEq/L (3.5-5.1)
[2023-10-19 08:24] LABS: Absolute Basophils 0.1 K/uL (0-0.5); Absolute Lymphocytes (CBC) 1.4 K/uL (0.7-4.9); Absolute Monocytes 0.6 K/uL (0.1-1.3); Absolute Neutrophil 8.5 K/uL (1.8-8.0); Basophils % 0.6 % (0-1.3); Eosinophils % 0.4 % (0-4.4); Hematocrit 39.2 % (36.0-45.0); Hemoglobin 13.2 g/dL (12.0-15.0); Lymphocytes % 13.3 % (15.3-44.8); MCH 30.1 pg (27.0-35.0); MCHC 33.5 g/dL (32.0-36.0); MCV 89.8 fL (80-100); MPV 9.2 fL (7.6-11.3); Monocytes % 5.7 % (3.3-12.3); Platelets 223 thou/uL (152-406); RBC Red Blood Cell Count 4.37 M/uL (3.86-4.86)
--- NOTE | 2023-10-19 09:39 | ER ---
Nurse's Notes [facility] Name: Amber Giles Age: 38 yrs Sex: Female : 1985 Arrival Date: 10/19/2023 Time: 07:02 Bed 4 Private MD: Janes Bright Diagnosis: Hyperemesis gravidarum Presentation: 10/18 07:11 Chief complaint: Patient states: Approximately 8 weeks . N/V for 3 weeks. No ll1 fever. Coronavirus screen: Client denies travel out of the [place] in the last 14 days. fatigue, nausea, vomiting. Client presents with at least one sign or symptom that may indicate coronavirus-19. Standard/surgical mask placed on the client. Ebola Screen: Patient denies travel to an Ebola-affected area in the 21 days before illness onset. Initial Sepsis Screen: Does the patient meet any 2 criteria? No. Patient's initial sepsis screen is negative. Does the patient have a suspected source of infection? No. Patient's initial sepsis screen is negative. Risk Assessment: Do you want to hurt yourself or someone else? Patient reports no desire to harm self or others. Onset of symptoms was September 29, 2023. 07:11 Method Of Arrival: Ambulatory ll1 07:11 Acuity: JOSUÉ 3 ll1 Triage Assessment: 07:10 General: Appears distressed, uncomfortable, ill, Behavior is calm, cooperative, bp appropriate for age. Pain: Denies pain. GI: Reports nausea, vomiting. Historical: - Allergies: 07:10 Macrobid; ll1 07:10 Sulfa (Sulfonamide Antibiotics); ll1 07:10 Latex, Natural Rubber; ll1 - PMHx: 07:10 Migraines; mitral valve prolapse; Sinusitis; ll1 - Immunization history:: Adult Immunizations up to date. - Infectious Disease History:: Denies. - Social history:: Smoking status: Patient denies any tobacco usage or history of. - Family history:: not pertinent. Screenin:10 [facility] ED Fall Risk Assessment (Adult) History of falling in the last 3 months, bp including since admission No falls in past 3 months (0 pts). Abuse screen: Denies threats or abuse. Denies injuries from another. Nutritional screening: No deficits noted. Tuberculosis screening: No symptoms or risk factors identified. Assessment: 07:10 General: SEE TRIAGE NOTE. GI: Abdomen is non-distended. bp 08:05 Reassessment: No changes from previously documented assessment. Patient is alert, bp oriented x 3, equal unlabored respirations, skin warm/dry/pink. Vital Signs: 07:11 BP 114 / 69; Pulse 81; Resp 18; Temp 97.2; Pulse Ox 99% ; Pain 4/10; ll1 08:05 BP 90 / 53; Pulse 71; Resp 16; Pulse Ox 99% ; bp 09:26 BP 89 / 49; Pulse 82; Resp 18; Pulse Ox 99% ; ld1 07:11 Pain Scale: Adult ll1 ED Course: 07:03 Patient arrived in ED. rg4 07:03 Janes Bright MD is Private Physician. rg4 07:10 Arm band placed on Patient placed in an exam room, on a stretcher. ll1 07:10 Patient has correct armband on for positive identification. bp 07:11 Kelvin Whalen MD is Attending Physician. rt 07:12 Triage completed. ll1 07:17 Fuad Hartley, RN is Primary Nurse. bp 07:40 Magnesium Sent. bp 07:40 CMP Sent. bp 07:40 CBC with Diff Sent. bp 07:41 Inserted saline lock: 22 gauge in right forearm, using aseptic technique. Blood bp collected. 10:05 No provider procedures requiring assistance completed. IV discontinued, intact, ld1 bleeding controlled, No redness/swelling at site. Administered Medications: 07:40 Drug: Ondansetron IVP 4 mg IVP once; over 2 minutes Route: IVP; Site: right forearm; bp 07:40 Drug: NS 0.9% IV 1000 ml IV at 1 bolus Per protocol; 1000 mL bolus Route: IV; Rate: 1 bp bolus; Site: right forearm; Medication: 07:10 VIS not applicable for this client. bp Outcome: 09:38 Discharge ordered by MD. rt 10:05 Discharged to home ambulatory, ld1 10:05 Condition: stable 10:05 Discharge instructions given to patient, Instructed on discharge instructions, follow up and referral plans. Demonstrated understanding of instructions, follow-up care, 10:05 Patient left the ED. ld1 Signatures: Araceli Roth rg4 Fuad Hartley, DEISY OLIVAS bp Charlotte Mabry RN RN ll1 Carolina Cardoso RN RN ld1 Kelvin Whalen MD MD rt Corrections: (The following items were deleted from the chart) 07:15 07:11 BP 107 / 41; Pulse 81bpm; Resp 18bpm; Pulse Ox 99%; Temp 97.2F; Pain 4/10, Adult; ll1 ll1
--- NOTE | 2023-10-19 09:39 | EDPHYS ---
Physician Documentation [facility] Name: Amber Giles Age: 38 yrs Sex: Female : 1985 Arrival Date: 10/19/2023 Time: 07:02 Bed 4 Private MD: Janes Bright ED Physician Kelvin Whalen HPI: 10/18 07:47 This 38 yrs old Female presents to ER via Ambulatory with complaints of rt Nausea/Vomiting, 7 Weeks . 07:47 Patient with about 7 weeks presents to the ED with continued hyperemesis rt gravidarum. Patient was seen in the ED about 2 days ago, improvement with medications. Was taking Unisom, B6 yesterday too much relief. Patient states that this morning, she was unable to keep anything down by mouth, including her nausea meds. Denies other acute complaints at this time, symptoms are moderate in severity, no other aggravating or elevating factors.. Historical: - Allergies: 07:10 Macrobid; ll1 07:10 Sulfa (Sulfonamide Antibiotics); ll1 07:10 Latex, Natural Rubber; ll1 - PMHx: 07:10 Migraines; mitral valve prolapse; Sinusitis; ll1 - Immunization history:: Adult Immunizations up to date. - Infectious Disease History:: Denies. - Social history:: Smoking status: Patient denies any tobacco usage or history of. - Family history:: not pertinent. ROS: 08:18 Constitutional: Negative for fever, chills, and weight loss, Cardiovascular: Negative rt for chest pain, palpitations, and edema, Respiratory: Negative for shortness of breath, cough, wheezing, and pleuritic chest pain, MS/Extremity: Negative for injury and deformity, Skin: Negative for injury, rash, and discoloration, Neuro: Negative for headache, weakness, numbness, tingling, and seizure, 08:18 Abdomen/GI: Positive for nausea and vomiting, Exam: 08:18 Constitutional: This is a well developed, well nourished patient who is awake, alert, rt and in no acute distress. Head/Face: Normocephalic, atraumatic. Chest/axilla: Normal chest wall appearance and motion. Nontender with no deformity. No lesions are appreciated. Cardiovascular: Regular rate and rhythm with a normal S1 and S2. No gallops, murmurs, or rubs. Normal PMI, no JVD. No pulse deficits. Respiratory: Lungs have equal breath sounds bilaterally, clear to auscultation and percussion. No rales, rhonchi or wheezes noted. No increased work of breathing, no retractions or nasal flaring. Abdomen/GI: Soft, non-tender, with normal bowel sounds. No distension or tympany. No guarding or rebound. No evidence of tenderness throughout. 08:18 ENT: Dry mucous membranes. Vital Signs: 07:11 BP 114 / 69; Pulse 81; Resp 18; Temp 97.2; Pulse Ox 99% ; Pain 4/10; ll1 08:05 BP 90 / 53; Pulse 71; Resp 16; Pulse Ox 99% ; bp 09:26 BP 89 / 49; Pulse 82; Resp 18; Pulse Ox 99% ; ld1 07:11 Pain Scale: Adult ll1 MDM: 07:14 Patient medically screened. rt 10:07 Differential diagnosis: Hyperemesis gravidarum, electrolyte disturbance. Data reviewed: rt vital signs, nurses notes, lab test result(s). I considered the following discharge prescriptions or medication management in the emergency department Medications were administered in the Emergency Department. See MAR. Counseling: I had a detailed discussion with the patient and/or guardian regarding the historical points, exam findings, and any diagnostic results supporting the discharge/admit diagnosis, lab results, the need for outpatient follow up, to return to the emergency department if symptoms worsen or persist or if there are any questions or concerns that arise at home. Response to treatment: the patient's symptoms have markedly improved after treatment. ED course: Patient a longer vomiting after antiemetics, will add further antiemetics to her regiment as it seems like her medicines have not been working due to the vomiting and unable to keep them down. Patient to follow-up with DIGITAL DESIGN ENGINEER, return precautions discussed.. 10/18 07:19 Order name: CBC with Diff; Complete Time: 08:29 rt 10/18 07:19 Order name: CMP; Complete Time: 08:29 rt 10/18 07:19 Order name: Magnesium; Complete Time: 08:29 rt Administered Medications: 07:40 Drug: Ondansetron IVP 4 mg IVP once; over 2 minutes Route: IVP; Site: right forearm; bp 07:40 Drug: NS 0.9% IV 1000 ml IV at 1 bolus Per protocol; 1000 mL bolus Route: IV; Rate: 1 bp bolus; Site: right forearm; Disposition Summary: 10/19/23 09:38 Discharge Ordered Notes: Location: Home rt Problem: an ongoing problem rt Symptoms: have improved rt Condition: Stable rt Diagnosis - Hyperemesis gravidarum rt Followup: rt - With: Private Physician - When: 2 - 3 days - Reason: Discharge Instructions: - Discharge Summary Sheet rt - Hyperemesis Gravidarum rt Forms: - Medication Reconciliation Form rt - Thank You Letter rt - Antibiotic Education rt - Prescription Opioid Use rt - Patient Portal Instructions rt - Leadership Thank You Letter rt Prescriptions: - ondansetron 4 mg Oral Tablet,disintegrating - take 1 tablet ORAL route every 6 hours as needed for nausea; 30 tablet; rt Refills: 0, Product Selection Permitted - promethazine 25 mg Rectal suppository - insert 1 suppository RECTAL route every 4 to 6 hours as needed for nausea and rt vomiting; 30 suppository; Refills: 0, Product Selection Permitted Signatures: Dispatcher [employer] Fuad Casarez, RN RN bp Charlotte Mabry RN RN ll1 Kelvin Whalen MD MD rt
[2023-10-19 10:44] VITALS: BP 89/49; TEMP 97.2; O2SAT 99
== END 2023-10-19 10:05 | disposition home or self-care (01) ==
LOC: ER 07:02
DX: O21.0 Mild hyperemesis gravidarum (principal); Z3A.01 Less than 8 weeks gestation of pregnancy; Z88.1 Allergy status to other antibiotic agents; Z88.2 Allergy status to sulfonamides; Z91.040 Latex allergy status
CPT/HCPCS: 85025; 36415; 83735; 80053; 96374; 99284; J2405